=== PATIENT | male | born 1940 | race Caucasian/White ===

== ENCOUNTER 2018-05-13 20:28 | Inpatient (IN) | payer MEDICARE, OTHER ==
[~2018-05-13] VITALS: Ht 177.8 cm; Wt 80.6 kg
[2018-05-13] MEDS ORDERED: MULTCAP PO (20:42)
[2018-05-13] MEDS ORDERED: ASPI-222 PO (20:42)
[2018-05-13] MEDS ORDERED: TUMS500C PO (20:42)
[2018-05-13 21:35] LABS: HEMATOCRIT 45.1 % (42.0-52.0); HEMOGLOBIN 14.4 g/dl (13.5-17.5); MEAN CORPUSCULAR HEMOGLOBIN 26.8 pg (27.0-33.0); MEAN CORPUSCULAR HGB CONC 31.9 g/dl (32.0-36.5); MEAN CORPUSCULAR VOLUME 83.8 fl (80.0-96.0); PLATELET COUNT, AUTOMATED 317 10^3/uL (150-450); RED BLOOD COUNT 5.38 10^6/uL (4.30-6.10)
[2018-05-13 21:38] LABS: WHITE BLOOD COUNT 24.5 10^3/uL (4.0-10.0)
[2018-05-13 21:52] LABS: ATYPICAL LYMPH 1 % (0-5); LYMPHOCYTES 57 % (16-52); MONOCYTES 4 % (0-8); NEUTROPHILS 38 % (35-75); PLATELET ESTIMATE NORMAL (NORMAL)
[2018-05-13 21:55] LABS: SMUDGE CELLS 1+
[2018-05-13 22:03] LABS: ALBUMIN 3.3 GM/DL (3.2-5.2); BILIRUBIN,DIRECT 0.3 MG/DL (0.0-0.2); BILIRUBIN,TOTAL 0.9 MG/DL (0.2-1.0); CALCIUM LEVEL 9.5 MG/DL (8.8-10.2); CREATININE FOR GFR 2.03 MG/DL (0.70-1.30); MB/CK RELATIVE INDEX 4.31 (< OR =4); POTASSIUM SERUM 5.6 MEQ/L (3.5-5.1); THYROID STIMULATING HORMONE 4.97 uIU/ML (0.358-3.740); THYROXINE (T4) 11.1 UG/DL (4.5-12.0); TOTAL PROTEIN 7.2 GM/DL (6.4-8.2); TROPONIN I 0.27 NG/ML (< 0.10)
--- NOTE | 2018-05-14 00:22 | REPVR ---
EXAM: CT Chest Without Contrast EXAM DATE/TIME: 05/13/2018 10:54 PM CLINICAL HISTORY: 77 years old, male; Signs and symptoms; Shortness of breath TECHNIQUE: Axial computed tomography images of the chest without intravenous contrast. All CT scans at this facility use at least one of these dose optimization techniques: automated exposure control; mA and/or kV adjustment per patient size (includes targeted exams where dose is matched to clinical indication); or iterative reconstruction. Coronal and sagittal reformatted images were created and reviewed. MIP reconstructed images were created and reviewed. COMPARISON: CR PORTABLE CHEST X-RAY 05/13/2018 9:11 PM FINDINGS: Lungs: Abnormal bronchocentric perihilar groundglass opacities noted bilaterally. There are fibrotic changes noted in the right middle lobe and the lingula. There is diffuse bronchial wall thickening. Paraseptal type emphysema at the right lung apex. Scattered centrilobular nodules noted in the right middle lobe. Pleural space: There are moderate sized bilateral pleural effusions. Heart: Normal. No cardiomegaly. No pericardial effusion. Mediastinum: There is a small sliding hiatal hernia. Aorta: Normal. No aortic aneurysm. Lymph nodes: Unremarkable. No enlarged lymph nodes. Bones/joints: Diffuse idiopathic skeletal hyperostosis in the dorsal spine. Mild biconcave deformity of T11 and T12. Soft tissues: Unremarkable. Kidneys and ureters: There are 2 exophytic low density lesion arising from the midportion the left kidney measuring 1.0 and 1.9 cm respectively in maximum diameter. There is a 1.8 cm low-density lesion in the midportion of the right kidney. IMPRESSION: 1. Bilateral bronchocentric perihilar groundglass pneumonitis. Differential diagnostic considerations include infectious pneumonia, pulmonary hemorrhage, acute interstitial pneumonia, hypersensitivity pneumonitis, noncardiogenic pulmonary edema among others 2. Moderate-sized bilateral pleural effusions. 3. Small sliding hilum hernia. 4. Bilateral low-density renal lesions not characterized fully on this noncontrast examination. Electronically signed by: Linda Bartlett On 05/14/2018 00:22:12 AM
[2018-05-14 00:33] LABS: HEMOGLOBIN A1c 13.3 %
[2018-05-14] MEDS ORDERED: HumaLOG INSULIN (NovoLOG) PER UNIT SC ONE ×2 (01:00→07:30)
[2018-05-14] MEDS ORDERED: FUROSEMIDE 40 MG/4 ML VIAL (J1940) IV ONE (01:00)
[2018-05-14] MEDS ORDERED: OCEA0.654 (01:19)
[2018-05-14] MEDS ORDERED: SUDA30TA8 PO (01:19)
[2018-05-14] MEDS ORDERED: VISI0.054 OU (01:19)
[2018-05-14] MEDS ORDERED: [UNRECOGNIZED DRUG - CODE] PO (01:19)
[2018-05-14] MEDS ORDERED: ASPI-222 PO (01:19)
[2018-05-14] MEDS ORDERED: TUMS750C5 PO (01:19)
[2018-05-14 01:29] LABS: MB/CK RELATIVE INDEX 5.32 (< OR =4)
[2018-05-14] MEDS ORDERED: SODIUM CHLORIDE NASAL 0.65% SPRAY BTL (OCEAN) PRN (01:45)
[2018-05-14] MEDS ORDERED: TETRAHYDROZOLINE OPHTH 0.05% 15 ML BTL OU PRN (01:45)
[2018-05-14] MEDS ORDERED: GLUCOSE 4 GM CHEW TABLET PO PRN (02:00)
[2018-05-14] MEDS ORDERED: DEXTROSE 50% 50 ML SYRINGE IV PRN (02:00)
[2018-05-14] MEDS ORDERED: GLUCAGON FOR INJ 1 MG VIAL (J1610) SC PRN (02:00)
--- NOTE | 2018-05-14 03:04 | HPEPDOC ---
[facility] Medical History & Physical Date of Admission May 14, 2018 Other Provider Dictating/admitting Celsa Rae M.D. Attending Physician: CODI MURPHY DO History and Physical CHIEF COMPLAINT: Progressive shortness of breath x couple of weeks HISTORY OF PRESENT ILLNESS: Patient is 77-year-old man. He has no known medical history. Comes in complaining of progressive shortness of breath on exertion for the past couple of weeks. He has noticed extreme dyspnea, with short walks. Currently, he is unable to take 5 steps without being severely short of breath. Patient had been lost to follow-up for the past 20 years. No PCP on account of health insurance issues. He did report that a couple weeks ago, he had an episode of upper respiratory tract infection, but after recovering from the URTI, then he noticed the shortness of breath, which has since not improved, but further worsened. Currently denies any fever, no chills. No dizziness, no nausea no vomiting. Occasional coughing, shortness of breath on exertion but no chest pain, no palpitations. He hasn't noticed any changes to his urinary or bowel habits. He has noted however very mild ankle swelling but no lower extremity pains. He was evaluated in the emergency room with chest x-ray and CT scan consistent with pulmonary edema, labs show elevated troponin 0.2. EKG with LBBB. Serum glucose 600, A1c anticipated. Serum creatinine 2.03. Patient was offered transfer to another hospital for further cardiac intervention if needed, but he declined. Dr. Boston was contacted and he will see patient as consult in the morning. Hospitalist was called for further evaluation and to admit patient. PAST MEDICAL HISTORY: None PAST SURGICAL HISTORY: Tonsillectomy as a child SOCIAL HISTORY: Lives with his . Denies any smoking. Occasional alcohol use. Denies any illicit drug use. FAMILY HISTORY: Father: from complications of heart disease at age 71 ALLERGIES: Please see below. REVIEW OF SYSTEMS: No new information, with 12 point review of system other than that described in the body of HPI HOME MEDICATIONS: Please see below. PHYSICAL EXAMINATION: VITAL SIGNS: Temperature 98.3, pulse 122, respiratory rate 18, blood pressure 102/65, pulse oximetry 95% on room air. GENERAL APPEARANCE: Elderly man, lying calmly in bed, ill looking not in any apparent distress. He is not pale, anicteric and afebrile HEENT: Atraumatic. Neck: Supple. LUNGS: Basal crepitations bilaterally. CARDIOVASCULAR: tachypneic, S1 and 2 heard, no murmurs, rubs or gallops. ABDOMEN: Obese, soft, not tender, not distended. Bowel sounds normoactive. MUSCULOSKELETAL: Apparently within normal limits. EXTREMITIES: mild ankle edema, 2+ bilateral pedal pulses noted. NEUROLOGICAL: Awake, alert, oriented 3. PSYCHIATRIC: Normal affect LABORATORY DATA: See below. IMAGING: Chest x-ray: Encephalization of vessels likely consistent with pulmonary edema. CT chest: 1. Bilateral bronchocentric perihilar groundglass pneumonitis. Differential diagnostic considerations include infectious pneumonia, pulmonary hemorrhage, acute interstitial pneumonia, hypersensitivity pneumonitis, noncardiogenic pulmonary edema among others 2. Moderate-sized bilateral pleural effusions. 3. Small sliding hilum hernia. 4. Bilateral low-density renal lesions not characterized fully on this noncontrast examination. MICROBIOLOGY: Please see below. ASSESSMENT: 77-year-old man with no known medical history lost to follow-up for over 20 years. Comes in with progressively worsening shortness of breath on exertion after recovering from upper respiratory infection. Patient looks ill on exam, but not in any apparent painful distress. Auscultation reveals bibasal crepitations. Labs with elevated troponin 0.2, creatinine 2.03, serum glucose 600, anticipating hemoglobin A1c results. EKG with LBBB. Patient refusing any intervention and refusing transfer to other centers for further cardiac care. We will treat medically as indicated. DIAGNOSES: 1. New onset CHF 2. New onset diabetes. 3. Rule out ACS. 4. CKD 5. Pneumonia . PLAN: 1. I will admit patient to the PCU under care of Dr. Murphy 2. New onset CHF Cardiologic consult placed. Echocardiogram at this time, I will consider starting patient low-dose beta reynaldo. Keeping in view beta blockers may worsen dyspnea but respiratory rate on exam is 18 low-dose beta reynaldo is indicated in this case due to tachycardia. Follow result of echocardiogram tomorrow and as indicated, start patient on CHIKIS inhibitor. Will continue furosemide 40 mg BID, day team please reevaluate patient's volume status and change dose as indicated. follow daily BMP. 3. Rule out ACS. I will touch base with pharmacy and figure out which anticoagulation will be better for this patient while cycling 1 more cardiac enzyme. Second troponin, elevated from 0.2-1. Next Troponin will be at 6 AM, patient will be seen by Dr. Boston the morning. Patient has refused being transferred to order centers for further cardiac care/intervention if needed and opted for medical management. I will give Lovenox 80 mg every 24 hours renally dose. 4. CKD likely from poorly monitored/treated. Diabetes. This might be from diabetic nephropathy. I will ask renal to see patient in the morning. Please follow renal US as suspicious findings noted on CT. 5. Pneumonia. Patient will get ceftriaxone and his azithromycin. Please follow blood culture. Follow temperature trends CBC/peripheral smear in the morning. 6. New onset diabetes. ADA diet and insulin sliding scale. 7. DVT prophylaxis. Anticoagulation. 8. GI prophylaxis. Pantoprazole. 9. Further management will be per patient's clinical course. Vital Signs Vital Signs Date Time Temp Pulse Resp B/P (MAP) Pulse Ox O2 Delivery O2 Flow Rate FiO2 05/13/18 20:59 122 18 102/65 (77) 95 Room Air 05/13/18 20:30 98.3 Laboratory Data Labs 24H Laboratory Tests 2 05/13/18 21:13: Estimated Mean Plasma Glucose 335H, Hemoglobin A1c 13.3 05/13/18 21:14: White Blood Count 24.5H, Red Blood Count 5.38, Hemoglobin 14.4, Hematocrit 45.1, Mean Corpuscular Volume 83.8, Mean Corpuscular Hemoglobin 26.8L, Mean Corpuscular Hemoglobin Concent 31.9L, Red Cell Distribution Width 14.3, Platelet Count 317, Lymphocytes # (Auto) , Nucleated Red Blood Cells % (auto) 0.0, Neutrophils 38, Lymphocytes (Manual) 57H, Monocytes (Manual) 4, Atypical Lymphocytes 1, Smudge Cells 1+, Platelet Estimate NORMAL, Anion Gap 14, Glomerular Filtration Rate 34.0L, Calcium Level 9.5, Aspartate Amino Transf (AST/SGOT) 10, Alanine Aminotransferase (ALT/SGPT) 15, Alkaline Phosphatase 104, Total Bilirubin 0.9, Direct Bilirubin 0.3H, Total Creatine Kinase 58, Creatine Kinase MB 2.0, Creatine Kinase MB Relative Index 4.31H, Troponin I 0.27H, JH-Pzb-L-Type Natriuretic Peptide 70637Z, Total Protein 7.2, Albumin 3.3, Albumin/Globulin Ratio 0.85L, Thyroid Stimulating Hormone (TSH) 4.970H, Thyroxine (T4) 11.1 05/14/18 00:55: Total Creatine Kinase 62, Creatine Kinase MB 3.0, Creatine Kinase MB Relative Index 5.32H, Troponin I 1.00#H CBC/BMP Laboratory Tests 05/13/18 21:14 Red Blood Count 5.38, Mean Corpuscular Volume 83.8, Mean Corpuscular Hemoglobin 26.8 L, Mean Corpuscular Hemoglobin Concent 31.9 L, Red Cell Distribution Width 14.3, Lymphocytes # (Auto) Home Medications Scheduled Aspirin (Aspirin) 325 Mg Tab, 325 MG PO DAILY Calcium Carbonate (Tums E-X 750) 750 Mg Chw, 750 MG PO BID Scheduled PRN (Theraflu Expressmax 12.5-5-325 mg/15Ml) 1 Liq Liq, 1 LIQ PO Q4H PRN for FLU SYMPTOMS Pseudoephedrine Hcl (Sudafed Congestion) 30 Mg Tab, 30 MG PO Q4H PRN for CONGESTION Sodium Chloride (Keller Nasal [place]) 0.65 % Spr, 2 SPRAY NA QID PRN for NASAL CONGESTION EACH NOSTRIL Tetrahydrozoline Hcl (Visine) 0.05 % Cony, 1 DROP OU QID PRN for REDNESS/IRRITATION Allergies Coded Allergies: [place] (Verified Allergy, Unknown, 05/13/18) CELSA RAE MD May 14, 2018 03:04
[2018-05-14 03:08] VITALS: BP 100/57
[2018-05-14] MEDS: LEVEMIR (INSULIN DETEMIR) 1 UNITS/0.01ML SC SCH ×2 (03:29→21:33)
[2018-05-14] MEDS: ONDANSETRON 4MG/2ML VIAL (J2405) IV PRN (03:53)
[2018-05-14] MEDS ORDERED: AZITHROMYCIN INJ 500 MG, VIAL MATE ADAPTER 1 EACH in D5W 250 ML IV ONE (04:00)
[2018-05-14 05:57] LABS: HEMATOCRIT 43.4 % (42.0-52.0); HEMOGLOBIN 13.8 g/dl (13.5-17.5); MEAN CORPUSCULAR HEMOGLOBIN 26.7 pg (27.0-33.0); MEAN CORPUSCULAR HGB CONC 31.8 g/dl (32.0-36.5); MEAN CORPUSCULAR VOLUME 83.9 fl (80.0-96.0); PLATELET COUNT, AUTOMATED 302 10^3/uL (150-450); RED BLOOD COUNT 5.17 10^6/uL (4.30-6.10)
[2018-05-14 06:02] LABS: WHITE BLOOD COUNT 23.3 10^3/uL (4.0-10.0)
[2018-05-14] MEDS: ENOXAPARIN 80 MG/0.8 ML SYRINGE (J1650) SC SCH (06:02)
[2018-05-14] MEDS: cefTRIAXone SOD 1 GM in D5W MINI-BAG PLUS 50 ML IV SCH (06:02)
[2018-05-14 06:18] LABS: HEMOGLOBIN A1c 13.4 %
[2018-05-14 06:21] LABS: CALCIUM LEVEL 10.3 MG/DL (8.8-10.2); CHOLESTEROL RISK RATIO 3.5 (<5); CREATININE FOR GFR 1.98 MG/DL (0.70-1.30); POTASSIUM SERUM 4.6 MEQ/L (3.5-5.1); TROPONIN I 3.99 NG/ML (< 0.10)
[2018-05-14 06:26] LABS: MAGNESIUM LEVEL 2.1 MG/DL (1.8-2.4); MB/CK RELATIVE INDEX 5.98 (< OR =4); TROPONIN I 4.44 NG/ML (< 0.10)
[2018-05-14 06:50] LABS: ATYPICAL LYMPH 10 % (0-5); LYMPHOCYTES 31 % (16-52); MONOCYTES 4 % (0-8); NEUTROPHILS 53 % (35-75)
[2018-05-14 06:51] LABS: PLATELET ESTIMATE NORMAL (NORMAL)
[2018-05-14 06:52] LABS: ANISOCYTOSIS 1+; SMUDGE CELLS 1+
[2018-05-14] MEDS: HumaLOG INSULIN (NovoLOG) PER UNIT SC SCH ×4 (07:30→21:33)
[2018-05-14 08:00] VITALS: BP 106/60
[2018-05-14] MEDS: HEPARIN SOD (PORCINE) 5000 UNITS/ML VIAL SC SCH ×2 (08:20→21:00)
[2018-05-14] MEDS: CARVedilol 3.125 MG TAB PO SCH ×2 (08:21→21:32)
[2018-05-14] MEDS ORDERED: SLF 3 ML SYR IV PRN (08:45)
--- NOTE | 2018-05-14 08:47 | REP ---
Chest one-view HISTORY: Cough Comparison: None Parenchymal densities are present in the lungs consistent with bilateral infiltrates or edema. Small bilateral pleural effusions are present. The heart is normal in size. The pulmonary vasculature is a prominent. Impression: 1. Bilateral infiltrates or edema. 2. Small bilateral pleural effusions. Electronically Signed by Cristian Huggins MD 05/14/2018 08:38 A
[2018-05-14] MEDS ORDERED: ASPIRIN ENTERIC 325 MG TAB PO SCH (09:00)
[2018-05-14] MEDS ORDERED: PANTOPRAZOLE 40MG TAB (PROTONIX) PO SCH (09:00)
[2018-05-14] MEDS ORDERED: FUROSEMIDE 40 MG/4 ML VIAL (J1940) IV SCH (09:00)
--- NOTE | 2018-05-14 09:37 | CR ---
DATE OF CONSULTATION: 05/14/2018 I was asked by Dr. Davila to see Mr. Giang for elevated troponin and congestive heart failure. HISTORY OF PRESENT ILLNESS: Mr. Giang is a 77-year-old man, who has not had any medical care for over 20 years. He tells me that the back then he was seen regularly because [place] and to the best of his recollection he was found to be completely healthy. He was in his usual state of health until approximately 2 weeks ago when he developed cough and a sensation of pressure on his chest. It was constant, present for several days. Eventually his brought him some cough medicine that he started taking; after 2 or 3 days the cough has subsided and the discomfort in his chest resolved as well, but shortly thereafter, he started experiencing dyspnea that gradually progressed to the point of orthopnea and eventually he was not able to tolerate even minimal ambulation and came to hospital for further management. There was also paroxysmal nocturnal dyspnea (PND), but at no point, since the initial chest pressure about 2 weeks ago he had additional chest discomfort. He also did not notice any palpitations and he did not have any peripheral edema. On presentation to the emergency room (ER), he had a chest x-ray that was consistent with congestive heart failure. It revealed cardiomegaly, bilateral pleural effusions and vascular distribution. His white count was quite elevated and ECG revealed sinus rhythm with low voltage in extremity leads but not in precordial leads, and there was poor R-wave progression and nonspecific IVCD and ST-segment depressions in leads V4 and V5. His troponin on presentation is borderline elevated. He was offered to be transferred to [place] but he refused. He stayed overnight and his troponin climbed and this morning is at 4.4. Surprisingly, his CK-MB though remains only minimally elevated at 6.0. At bedside, he tells me that he is comfortable. He feels a lot better than he did yesterday even though he still feels short of breath. He denies any chest discomfort. He did put out approximately a liter of urine since presentation to the hospital even though it has been poorly documented. PAST MEDICAL HISTORY: Negative. He has not seen a physician though over 20 years at the minimum. SURGICAL HISTORY: He had tonsillectomy, otherwise negative. No medications. NO ALLERGIES. 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 Does not smoke. Minimal alcohol use. FAMILY HISTORY: His father suddenly in his 70s, most likely of myocardial infarction ([place]). At the review of systems, he denies any recent fever other than possibly 2 weeks ago when his symptoms started. He denies any chills. He denies syncope and near-syncope. Denies chest pain. He denies any productive cough. He denies abdominal pain, nausea, vomiting, diarrhea. No peripheral edema of significance. He did lose approximately 30 pounds of weight since last December. He recalls that then he had a similar presentation but it gradually improved on its own. PHYSICAL EXAMINATION: Mr. Giang is a 77-year-old man, who is sitting in progressive care unit (PCU) bed. Surprisingly, he looks completely comfortable and is in no distress. He is alert and oriented and appropriate. Lungs reveal fine end inspiratory crackles over lower, maybe on-third or quarter of his lung field. At the true bases though, the lung sounds are completely diminished and there is dullness to percussion indicative of effusions. In the upper two-thirds of the lungs sound clear. Heart exam reveals somewhat muffled heart sound. I do not appreciate a murmur or gallop, but the I had a really hard time auscultating the sounds at all. Abdomen is soft. No hepatosplenomegaly. There is no tenderness. Bowel sounds are present. Extremities are free of edema. Peripheral pulses are easily palpable on both lower extremities. He has stasis dermatitis subtle changes over the lower third of left sr. Neurologically, he is alert and oriented and appropriate. I do not appreciate any focal deficit. His thought process is completely intact. LABORATORY: As of this morning, sodium 129, potassium 4.6, BUN 36, creatinine 2.0 for GFR 35 and glucose 550. Hemoglobin A1c was 13.4. Calcium 10.3. Troponin is climbing and is 4.4 this morning. On admission, it was 0.27 yesterday evening. His liver function tests are essentially normal. Cholesterol 175, LDL 99, triglycerides 130, TSH was 4.9. CBC: WBC count 23,000, hemoglobin 13, hematocrit 43, platelet count 302,000. His peripheral smear had atypical lymphocyte in them. In differential, there was 30 neutrophils and 57% lymphocytes. ECG as per history of present illness. Chest x-ray as per history of present illness. CT scan also consistent with a finding on the chest x-ray with bilateral pleural effusions and probably changes related to pulmonary edema. Borderline cardiomegaly. No pericardial effusion. ASSESSMENT AND PLAN: Mr. Giang is a 77-year-old man, who comes to hospital with florid congestive heart failure that is principally left-sided. He also is ruling in for myocardial infarction even though he never had any chest discomfort per se. I have to say that the whole presentation is not completely typical. I do assume that he most likely has underlying cardiomyopathy that was recently aggravated by probably viral illness and threw him into congestive heart failure that is florid. The elevation of the troponin possibly could be ischemic but it also could be a sign of myocarditis. I agree with management so far. He received aspirin and he received Lovenox considering renal dysfunction the dose is essentially therapeutic. He also received minimal dose of beta-reynaldo and I would not give him higher dose due to his heart failure and unknown ejection fraction (EF) at this point. I will increase the dose of diuretics some more and will obtain an echocardiogram and renal ultrasound. Further management will depend on findings. I had a discussion with the patient about his wishes. He is firm in his decision to be DO NOT INTUBATE, DO NOT RESUSCITATE, and he also is firm with his decision not to consider transfer potential coronary intervention, but he left the door open that depending on evolving of his situation he may agree to intervention if felt highly beneficial, but at this point he does not consider that consistent with his wishes. SHRUTHI
[2018-05-14 09:43] LABS: C REACTIVE PROTEIN QUANTITATIV 14.1 MG/DL (0.00-0.30)
[2018-05-14 12:00] VITALS: BP 108/60
[2018-05-14 13:24] LABS: INR 1.12; PROTHROMBIN TIME 14.5 SECONDS (12.1-14.4)
[2018-05-14] MEDS: SLF 3 ML SYR IV SCH ×2 (13:54→21:34)
[2018-05-14] MEDS: FUROSEMIDE 100 MG/10 ML VIAL (J1940) IV SCH (13:54)
[2018-05-14 13:59] LABS: MB/CK RELATIVE INDEX 5.22 (< OR =4); TROPONIN I 4.78 NG/ML (< 0.10)
[2018-05-14 16:00] VITALS: BP 110/58
--- NOTE | 2018-05-14 18:01 | REP ---
Urinary tract sonography: History: Suspicious renal lesion on CT abdomen. Comparison is made with images from CT study of the chest May 13, 2018. Sonographic findings: Filled views of the bladder demonstrate a trabecular bladder bonilla and somewhat thickened bladder bonilla. The bladder is incompletely filled. No bladder mass lesion is seen. Renal cortical echogenicity pattern is increased bilaterally consistent with chronic medical renal disease. There is no evidence of hydronephrosis. No renal mass is seen on either side. The left kidney measures 10.0 x 4.5 x 4.8 cm. Right renal dimensions are 9.9 x 5.8 x 4.7 cm. The right kidney demonstrates a 2.2 x 2.0 x 1.4 cm cyst at the lower pole. There are two cysts visible laterally at mid pole on the left measuring 2.2 x 2.2 x 1.0 and 1.1 x 2.0 x 1.2 cm respectively. Impression: Bilateral renal cysts. No hydronephrosis. Increased renal cortical echogenicity consistent with chronic medical renal disease. Trabeculated bladder bonilla. Electronically Signed by Tad Naylor MD 05/14/2018 06:19 P
--- NOTE | 2018-05-14 19:51 | ECGEPIP ---
Stationary ECG Study 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
[2018-05-14 21:08] VITALS: BP 113/69
[2018-05-14] MEDS: ATORVASTATIN 20 MG TAB PO SCH (21:31)
[2018-05-14 21:39] LABS: MB/CK RELATIVE INDEX 4.46 (< OR =4); TROPONIN I 2.8 NG/ML (< 0.10)
[2018-05-14 23:47] VITALS: BP 100/64
[2018-05-15] VITALS (11 sets, daily range): BP systolic 91–113; BP diastolic 59–70
[2018-05-15 00:04] LABS: APPEARANCE, URINE CLEAR (CLEAR); BACTERIA, URINE AUTO NEGATIVE (NEGATIVE); BILIRUBIN, URINE AUTO NEGATIVE (NEGATIVE); BLOOD, URINE BLOOD NEGATIVE (NEGATIVE); COLOR, URINE YELLOW (YELLOW); GLUCOSE, URINE (UA) AUTO 1+ mg/dL (NEGATIVE); KETONE, URINE AUTO NEGATIVE (NEGATIVE); LEUKOCYTE ESTERASE, URINE AUTO NEGATIVE (NEGATIVE); MUCUS, URINE SMALL (NEGATIVE); NITRITE, URINE AUTO NEGATIVE (NEGATIVE); PROTEIN, URINE AUTO NEGATIVE (NEGATIVE); RBC, URINE AUTO 2 /HPF (0-3); SPECIFIC GRAVITY URINE AUTO 1.011 (1.002-1.035); SQUAMOUS EPITHELIAL CELL UR AU 0 /HPF (0-6); UROBILINOGEN, URINE AUTO 0.2 mg/dL (0.0-2.0); WBC, URINE AUTO 1 /HPF (0-3)
[2018-05-15 00:26] LABS: CREATININE,RANDOM URINE 73.3 MG/DL
[2018-05-15] MEDS: ENOXAPARIN 80 MG/0.8 ML SYRINGE (J1650) SC SCH ×2 (01:30→06:07)
[2018-05-15] MEDS: **hydrALAZINE** 10 MG TAB PO SCH ×3 (06:00→22:00)
[2018-05-15] MEDS: cefTRIAXone SOD 1 GM in D5W MINI-BAG PLUS 50 ML IV SCH (06:07)
[2018-05-15] MEDS: SLF 3 ML SYR IV SCH ×3 (06:07→21:14)
[2018-05-15 06:22] LABS: HEMATOCRIT 42.6 % (42.0-52.0); HEMOGLOBIN 13.6 g/dl (13.5-17.5); MEAN CORPUSCULAR HEMOGLOBIN 26.7 pg (27.0-33.0); MEAN CORPUSCULAR HGB CONC 31.9 g/dl (32.0-36.5); MEAN CORPUSCULAR VOLUME 83.7 fl (80.0-96.0); PLATELET COUNT, AUTOMATED 256 10^3/uL (150-450); RED BLOOD COUNT 5.09 10^6/uL (4.30-6.10); WHITE BLOOD COUNT 23.4 10^3/uL (4.0-10.0)
--- NOTE | 2018-05-15 06:32 | ECHO ---
DATE OF PROCEDURE: 05/14/2018 REFERRING PHYSICIAN: Dr. Davila. INDICATION: Congestive heart failure. Height: 178 cm Weight: 81 kg DIMENSIONS: IVS: 1.0 LV: 5.3 LVPW: 0.9 LA: 3.9 Aorta: 3.2 IVC: 1.9 Mitral E wave velocity: 43 E prime septal: 3.3 E prime lateral: 8.9 Left atrial volume index: 9 mL/m2 FINDINGS: The study is of good technical quality. The patient is in sinus tachycardia with ventricular rate approximately 120-125 bpm. Left ventricle is normal size. There is severe global hypokinesis. I estimate overall ejection fraction approximately 10%. Right ventricle does not appear grossly dilated but is also hypokinetic. Left atrium is mildly enlarged. Right atrium was poorly seen but grossly appears normal. Aortic, mitral, tricuspid and pulmonic valves all appear normal for patient's age. There are minimal sclerotic abnormalities of aortic and mitral valves but mobility of leaflets is preserved. No pericardial effusion is noted. Inferior vena cava is in upper limits of normal values but does not collapse with respiration indicative of high central venous pressure. Aortic root is normal. Aortic arch and abdominal aorta were not seen. Left pleural effusion was seen. Doppler interrogation reveals no aortic stenosis or insufficiency. There is mild mitral and mild tricuspid insufficiency. Calculated pulmonary artery pressure is in 40s corresponding to moderate pulmonary hypertension. Mild pulmonic insufficiency seen. Evaluation of diastolic function is inconclusive due to fusion of mitral E and A-waves but considering very low tissue Doppler velocities of mitral annulus, it is likely that the patient has advanced diastolic dysfunction. CONCLUSION: 1. Study is of good technical quality. 2. Normal LV size but severe global hypokinesis with estimated LVEF approximately 10%, at least grade 2 diastolic dysfunction. 3. No hemodynamically significant valvular disease. 4. Elevated central venous pressure and likely moderate pulmonary hypertension. COMMENT: SBE prophylaxis is not recommended. The study favors nonischemic cardiomyopathy, but ischemic etiology is certainly possible. MTDD
[2018-05-15 06:58] LABS: CREATININE FOR GFR 1.89 MG/DL (0.70-1.30); GLOMERULAR FILTRATION RATE 36.9 (>42); MB/CK RELATIVE INDEX 4.47 (< OR =4); POTASSIUM SERUM 3.4 MEQ/L (3.5-5.1); TROPONIN I 1.75 NG/ML (< 0.10)
[2018-05-15] MEDS: HumaLOG INSULIN (NovoLOG) PER UNIT SC SCH ×4 (07:30→21:14)
--- NOTE | 2018-05-15 08:04 | CR ---
DATE OF CONSULTATION: 05/14/2018 REQUESTING PHYSICIAN: Dr. Becca Stewart. REASON FOR CONSULTATION: Management of acute renal failure. CHIEF COMPLAINT: Patient presented to the hospital for progressive shortness of breath a few weeks. HISTORY OF PRESENT ILLNESS: Sandor Giang is a 77-year-old male who apparently has not seen a physician in the last 20 years. He denies any past medical history. He presented to the hospital yesterday with progressive shortness of breath for a couple of weeks. Further evaluation including labs and images done in the emergency room showed that patient had diabetes mellitus. His blood sugars were more than 600. Chest x-ray showed evidence of pulmonary edema. He was tachycardic. He was found to be in congestive heart failure. EKG showed a left bundle branch block. He also had mild elevation of troponins. He was admitted under the hospitalist service for new onset diabetes, decompensated congestive heart failure, rule out acute coronary syndrome. He was also found to have a creatinine of 2.03 on admission. Potassium of 5.6 and sodium of 128. Crisis Therapist service was called for further help in the management of this patient with acute renal failure. Decompensated congestive heart failure, diabetes mellitus and multiple electrolyte abnormalities. I saw and evaluated the patient this morning at the bedside. Patient reported that he was feeling better today as compared with yesterday. He has been diuresed since last night. He has been started on insulin. His blood sugars are also improving. There is slight improvement in his creatinine today as compared with yesterday. PAST MEDICAL HISTORY: Patient has not see a physician in 20 years. PAST SURGICAL HISTORY: He reports history of tonsillectomy in his childhood. ALLERGIES: No known drug allergies. He is allergic to strawberries. FAMILY HISTORY: No significant family history of end-stage renal disease requiring hemodialysis. SOCIAL HISTORY: Patient lives at home with his . He denies any elicit drug abuse, alcohol abuse, or smoking. REVIEW OF SYSTEMS: CONSTITUTIONAL: Patient denies any fevers or chills. EYES: He denies any blurry vision, double vision. ENT: He denies any dysphagia. CARDIOVASCULAR: He reports palpitations and chest pressure. RESPIRATORY: He reports shortness of breath. GI: He denies any nausea or vomiting. : He denies any dysuria, hematuria. MUSCULOSKELETAL: He denies any muscle aches and pains. SKIN: He denies any rashes or ulcers. ENDOCRINE: He reports a newly diagnosed diabetes. HEMATOLOGICAL/ONCOLOGICAL: He denies any easy bleeding or bruising. PSYCH: He denies any depression or anxiety. All other review of systems is negative. PHYSICAL EXAMINATION: VITAL SIGNS: Temperature 98 degrees Fahrenheit, blood pressure 108/60, pulse 120, respiratory rate 18, saturating 98% in room air. Intake and output: Urine output recorded so far as 2.1 liters. GENERAL: Patient is awake, alert, oriented times three sitting up in the bed. HEAD/NECK: Extraocular muscles intact. Pupils equally round and reactive to light. Mucous membranes are moist. NECK: Supple. There is on mildly elevated jugular venous distention (JVD). CARDIOVASCULAR: S1, S2, tachycardia. 1+ edema of the bilateral lower extremities. RESPIRATORY: Chest bilaterally had mild crepitations with deep inspiration. Mildly decreased focal resonance bilaterally at the bases. ABDOMEN: Soft, positive bowel sounds. Nontender. No organomegaly. : Bladder is not palpable. MUSCULOSKELETAL: No clubbing or cyanosis. 1+ edema of the bilateral lower extremities. LOOSE HAND PACKER: No focal deficit. Power is 5/5 in all extremities. SKIN: No rashes or ulcers. LAB REVIEW: CBC showed a WBC 23.3, hemoglobin 13.8, platelets 302. INR 1.12. BMP on arrival showed sodium 128, potassium 5.6, chloride 94. Bicarbonate 20, BUN 34, creatinine 2, glucose 640, A1c 13.3, bilirubin 0.3, troponin was 0.27, proBNP 10,635. TSH 4.97. Microbiology: Blood cultures are pending. IMAGING: A renal ultrasound showed bilateral renal cysts. Increased renal cortical echogenicity consistent with medical renal disease. Trabeculated bladder wall. A CT chest was done which showed bilateral bronchocentric perihilar ground-glass pneumonitis, which had a broad differential diagnosis including pulmonary edema versus pneumonitis. Moderate-sized bilateral pleural effusions. CURRENT INPATIENT MEDICATIONS: Patients inpatient medications are all reviewed by me. He is on: - azithromycin 500 mg IV once - Rocephin 1 gram IV every 24 hours - aspirin 325 mg daily - Lipitor 20 mg nightly - Coreg 3.125 mg by mouth twice a day - Lasix 30 mg IV every 12 hours - Insulin Levemir 10 units subcutaneous nightly and insulin sliding scale. - Zofran as needed ASSESSMENT: 77-year-old male with new onset diabetes mellitus type 2, acute decompensated congestive heart failure, acute renal failure, pneumonia, hyponatremia, hypokalemia and metabolic acidosis. PLAN: 1. Acute renal failure: This is most likely secondary to a combination of diabetes mellitus type 2 and decompensated congestive heart failure. Baseline renal function is not known. Patient has not seen a physician for more than 20 years. I see that since last night with diuresis there is a slight improvement in his creatinine from 2.0 to 1.9. Okay to continue the current diuresis at this point. There is no urinalysis available. I have ordered the urinalysis and urine protein/creatinine ratio. Renal ultrasound showed increased renal echogenicity most likely secondary to diabetic nephropathy. 2. Hyponatremia: Patient has hypervolemic hyponatremia. Sodium level is improving with diuresis. 3. Hyperkalemia: This is secondary to renal failure and metabolic acidosis. Potassium level is improving with diuresis. 4. Metabolic acidosis: This is secondary to renal failure. No need or oral bicarbonate administration. Bicarbonate level is expected to improve with further improvement in the renal function. 5. New onset diabetes mellitus type 2: Patient has been started on insulins sliding scale and insulin Levemir. Glucose levels are improving. Most likely patient has un-diagnosed diabetes for may years and he might already have developed diabetic nephropathy as well. 6. Decompensated congestive heart failure: Patient does not have an echocardiograms available. Looking at patient's tachycardia and decompensated congestive heart failure, most likely looks like he has a systolic congestive heart failure. Okay to continue diuretics. He has already been started on Coreg 3.125 mg by mouth twice a day and I agree with that. 7. Community acquired pneumonia: Patient came in with leukocytosis and infiltrates on the CT scan. I agree with giving him ceftriaxone and azithromycin. Blood cultures are pending at this point. 8. Acute coronary syndrome: Patient has elevated troponin levels. He is already on aspirin, Plavix and Lovenox. He has been started on a statin. He has been started on low dose beta reynaldo. Patient was seeing cardiology. He refused any intervention or transfer to a higher level of care in [place]. Continue current medical management at this point. The rest of the management is as per cardiology recommendations. His EKG showed left bundle branch block. Thank you for involving me in the care of this patient. I shall be happy to follow the patient along with you tomorrow morning.
--- NOTE | 2018-05-15 08:39 | ECGEPIP ---
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
--- NOTE | 2018-05-15 08:52 | IPN ---
DATE: 05/15/2018 Mr. Giang tells me that he is feeling about 50% better today. He was able to walk to the bathroom and have his morning toilet without getting overly short of breath. He did not have paroxysmal nocturnal dyspnea (PND). Unfortunately, he did not sleep well. He said he was very restless, but overall there was definite improvement. He denies any chest pain. Vital Signs: This morning, blood pressure 113/65. Heart rate 104. He is afebrile. Saturation 93% on room air. Fluid balance yesterday was documented about negative 1600. He is alert, oriented and appropriate. I do not appreciate jugular venous pulse (JVP) elevation by physical exam. Lungs reveal diminished breath sounds over bases again and I do not appreciate any crackles or wheezes above. Heart exam still muffled heart sounds. No gallop appreciated. Abdomen: Soft. No significant peripheral edema. Neurologically intact. Laboratory-odonnell, sodium 130, potassium 3.4, BUN 44, creatinine 1.9, glucose 317. Troponin peaked at 4.8 and has been declining since. CBC still revealed WBC count 23,000, hemoglobin 13, hematocrit 42 and platelet count 256,000. ASSESSMENT/PLAN: Mr. Giang is a 77-year-old man who presented with florid congestive heart failure. Echocardiogram revealed ejection fraction (EF) approximately 10% percent global in nature. I do assume that this is most likely cardiomyopathy even though his troponin is elevated. He never had any chest discomfort. We will continue therapies for congestive heart failure. I am going to add spironolactone to his furosemide and will give him a small dose of hydralazine with holding parameters for blood pressure. He is also on a tiny dose of carvedilol. So far, he has been improving, but his prognosis is certainly guarded. I spoke with him extensively about his wishes and about further management. He still is refusing consideration of angiogram. The sad news is that it is probably mostly financially motivated, but he is firm in his decision. Consequently, he is not going to be a candidate for defibrillator either for the same reason. I am hoping that his opinion will eventually change. I do expect that he will stay in the hospital for several more days.
[2018-05-15] MEDS ORDERED: POTASSIUM CHLORIDE 10 MEQ SR TABLET PO ONE (09:00)
--- NOTE | 2018-05-15 09:03 | ECGEPIP ---
Stationary ECG Study [facility] Test Date: 2018-05-15 Pat Name: RACHEL BETANCOURT Department: Room: [place] [address] Gender: M Game Moderator: LESLIE : 1940 Requested By: Emi Boston Order Number: [id number] Reading MD: Silas Ye Measurements Intervals [place] Rate: 106 P: 15 [place]: 124 QRS: 74 QRSD: 105 T: 0 QT: 386 QTc: 514 Interpretive Statements SINUS TACHYCARDIA LOW QRS VOLTAGE IN EXTREMITY LEADS POSSIBLE ANTERIOR MYOCARDIAL INFARCTION, OF INDETERMINATE AGE Nonspecific ST-T wave abnormalities Electronically Signed On 05-15-2018 9:03:29 EST by Silas Ye
[2018-05-15] MEDS: SPIRONOLACTONE 12.5MG PER 1/2 TABLET PO SCH (11:44)
[2018-05-15] MEDS: ASPIRIN 325 MG TAB PO SCH (11:44)
[2018-05-15] MEDS: AZITHROMYCIN 250 MG TAB PO SCH (11:45)
[2018-05-15] MEDS: CARVedilol 3.125 MG TAB PO SCH ×2 (11:45→22:26)
[2018-05-15] MEDS: FUROSEMIDE 100 MG/10 ML VIAL (J1940) IV SCH ×3 (12:01→20:18)
--- NOTE | 2018-05-15 18:50 | IPN ---
DATE: 05/15/2017 SUBJECTIVE: Patient is seen and examined in the room today. Patient states he still has some shortness of breath especially during exertion, but he feels that he is feeling better than a few days ago. Denies any chest pain. Denies any shortness of breath. OBJECTIVE: VITAL SIGNS: Temperature is 98, pulse 104, respiration rate is 18, blood pressure 113/65, pulse oximetry 93% on room air. GENERAL: No sign of acute distress. Patient is alert and awake. Comfortable. HEENT: Normocephalic, atraumatic. Extraocular motor grossly intact. CARDIOVASCULAR: Tachycardic. Positive S1, S2. LUNGS: Decreased breath sounds. No sign of further wheezes or crackles appreciated. ABDOMEN: Soft, nontender. EXTREMITIES: No edema. LABORATORY DATA: WBC is 23.4, hemoglobin 13.6, hematocrit 42.6, platelet count is 256. Sodium is 130, potassium 3.4, chloride 99, carbon dioxide 19. BUN is 44, creatinine is 1.89. GFR 36.9, fasting glucose 317. Calcium is 9, magnesium 2. Total CK is 76. Troponin I is 1.75. ASSESSMENT AND PLAN: 1. Systolic and diastolic congestive heart failure exacerbation. Echocardiogram was performed. Patient was found to have ejection fraction (EF) of approximately 10%. Patient also had a grade 2 diastolic dysfunction. Patient is currently on IV Lasix and spironolactone. Patient has a good negative fluid balance. Patient is on fluid restriction. 2. Elevated troponin. Cardiology consulted. Patient refused cardiac catheterization. Currently patient is on aspirin, Lipitor and Lovenox. 3. Leukocytosis. Patient never had complaint about fever or chills. Blood culture remains negative. Urine culture is negative. CT of the chest performed and demonstrates the possible differential include pneumonia versus pulmonary hemorrhages, acute interstitial pneumonia, hypertensive pneumonitis. I have ordered sputum culture, however, no sample is available at this moment. Patient is on empiric antibiotics. Peripheral smear is also performed and demonstrates patient has some leukocytosis with scattered smudge cells. Flow cystometry of peripheral blood ordered. The patient may need to rule out lymphoproliferative disorder. No blasts are seen on the peripheral smear. I have discussed with oncologist. Currently the patient has no thrombocytopenia, no anemia and patient would benefit from outpatient hematology followup. At the moment will wait for the flow cytometry results. 4. Acute renal failure. Renal ultrasound reviewed. Patient is being treated for decompensated congestive heart failure on diuretics. Eye Glass Frame Polisher consulted. Appreciate their assistance. 5. New onset type 2 diabetes. Insulin sliding scale. On consistent carbohydrate diet. 6. DVT prophylaxis. Patient is on Lovenox.
[2018-05-15 19:13] LABS: CALCIUM LEVEL 9.2 MG/DL (8.8-10.2); CREATININE FOR GFR 2.09 MG/DL (0.70-1.30); GLOMERULAR FILTRATION RATE 32.9 (>42); MAGNESIUM LEVEL 2.2 MG/DL (1.8-2.4); MB/CK RELATIVE INDEX 4.12 (< OR =4); POTASSIUM SERUM 3.9 MEQ/L (3.5-5.1)
[2018-05-15] MEDS: LEVEMIR (INSULIN DETEMIR) 1 UNITS/0.01ML SC SCH (21:13)
[2018-05-15] MEDS: ATORVASTATIN 20 MG TAB PO SCH (21:13)
[2018-05-16] VITALS (7 sets, daily range): BP systolic 98–117; BP diastolic 62–71
[2018-05-16] MEDS: **hydrALAZINE** 10 MG TAB PO SCH ×3 (06:00→21:51)
[2018-05-16] MEDS: cefTRIAXone SOD 1 GM in D5W MINI-BAG PLUS 50 ML IV SCH (06:15)
[2018-05-16] MEDS: SLF 3 ML SYR IV SCH ×3 (06:15→21:17)
[2018-05-16] MEDS: FUROSEMIDE 100 MG/10 ML VIAL (J1940) IV SCH ×2 (06:16→18:13)
[2018-05-16 07:24] LABS: HEMATOCRIT 42.4 % (42.0-52.0); HEMOGLOBIN 13.9 g/dl (13.5-17.5); MEAN CORPUSCULAR HGB CONC 32.8 g/dl (32.0-36.5); MEAN CORPUSCULAR VOLUME 82.3 fl (80.0-96.0); PLATELET COUNT, AUTOMATED 336 10^3/uL (150-450); RED BLOOD COUNT 5.15 10^6/uL (4.30-6.10)
[2018-05-16 07:30] LABS: WHITE BLOOD COUNT 27.8 10^3/uL (4.0-10.0)
[2018-05-16 07:56] LABS: CREATININE FOR GFR 1.99 MG/DL (0.70-1.30); GLOMERULAR FILTRATION RATE 34.8 (>42); MAGNESIUM LEVEL 2.2 MG/DL (1.8-2.4); POTASSIUM SERUM 4.1 MEQ/L (3.5-5.1)
[2018-05-16 08:06] LABS: ATYPICAL LYMPH 5 % (0-5); LYMPHOCYTES 54 % (16-52); MONOCYTES 1 % (0-8); NEUTROPHILS 40 % (35-75); PLATELET ESTIMATE NORMAL (NORMAL)
[2018-05-16 08:08] LABS: C REACTIVE PROTEIN QUANTITATIV 6.91 MG/DL (0.00-0.30)
[2018-05-16] MEDS: ASPIRIN 325 MG TAB PO SCH (08:46)
[2018-05-16] MEDS: AZITHROMYCIN 250 MG TAB PO SCH (08:46)
[2018-05-16] MEDS: SPIRONOLACTONE 12.5MG PER 1/2 TABLET PO SCH (08:46)
[2018-05-16] MEDS: HumaLOG INSULIN (NovoLOG) PER UNIT SC SCH ×4 (08:48→21:21)
[2018-05-16] MEDS: CARVedilol 3.125 MG TAB PO SCH ×2 (08:48→21:16)
--- NOTE | 2018-05-16 08:58 | IPN ---
DATE OF SERVICE: 05/16/2018 Unfortunately, Mr. Giang is feeling worse today than he did yesterday. He said he had a lot of paroxysmal nocturnal dyspnea (PND) and orthopnea last night, and he also had some chest discomfort, which is the first time he complains about it. It lasted only about 10 minutes but was pressure-like and left-sided. He felt immediately better after he received oxygen in respect of both dyspnea and chest discomfort. Unfortunately, some of his medications were held due to low blood pressure like, for example, he did not get his hydralazine this morning. Vital signs: Blood pressure was documented at 98/70, heart rate has been in 100 and teens. He is afebrile. Saturation 97% on 2 liters of oxygen. His fluid balance yesterday was poorly documented, but it looks like he put out only about a liter, which again because the output is not all registered, it may not be completely accurate, but the weight is actually slightly up at 81.5 kg. He is alert and oriented and appropriate. His jugular venous pressure (JVP) looks a little higher today. I would say about 3 cm above the clavicle. Lungs still diminished over bases and occasional crackle above. Good air movement. Heart examination: Regular with tachycardia with gallop. Abdomen is soft. Extremities are free of edema. LABORATORY-MONACO: Sodium 134, potassium 4.1, BUN is 48, creatinine 1.99, and glucose 211. His troponin came down to 1.0 last night, and CRP is 6.9. ASSESSMENT AND PLAN: Mr. Giang is a 77-year-old man who has, in my opinion, most likely chronic cardiomyopathy that was recently aggravated, either by acute coronary syndrome or some form of viral infection. He is still in florid heart failure. Unfortunately, he has not put out much urine with his current diuretics; and on top of it, the dose of furosemide was reduced by nephrology. My recommendation would be to increase the dose at least to 120 mg twice a day, but I will leave it to nephrology's discretion at this point. Otherwise, we are limited by a low blood pressure with administration of medications. If possible, he will get hydralazine. I am very reluctant to use dobutamine in this condition because the patient is already tachycardic, and also he is DO NOT INTUBATE (DNI) and DO NOT RESUSCITATE (DNR); and consequently, there would not be an option of defibrillation in case he goes into ventricular tachycardia; and finally, he has evidence for myocardial necrosis with elevated troponin; so, I would like to stay away from pressors if only possible. I had a discussion with the patient about his further management. Today, he left the door open for possibility of coronary angiography. He said that he will talk about it with his later today and will let us know, but there are no immediate plans to proceed on his part. His condition is certainly guarded, and he is much sicker than it appears at first glance. SHRUTHI
[2018-05-16 09:48] LABS: ABG BASE EXCESS -2.1 (-2.0-2.0); ABG O2 SATURATION 98.8 % (95.0-99.0); ABG PARTIAL PRESSURE CO2 24.3 mmHg (35.0-45.0); ABG STANDARD HCO3 22.8 MEQ/L (22.0-26.0); ABG TOTAL CO2 19.8 MEQ/L (23.0-31.0); ABG pH (ARTERIAL) 7.512 UNITS (7.350-7.450)
--- NOTE | 2018-05-16 10:50 | IPN ---
DATE: 05/15/2018 SUBJECTIVE: Patient was seen and examined at the bedside today, morning. Patient is hemodynamically stable. He reports that his shortness of breath is improving. His echocardiogram results came back. He has severe systolic congestive heart failure with an ejection fraction (EF) of around 10% with grade 2 diastolic dysfunction. Renal function continues to improve with diuresis. Creatinine is down to 1.8. He still has persistent leukocytosis. Peripheral smear showed predominantly lymphocytosis. Flow cytometry results are pending. OBJECTIVE: VITAL SIGNS: Temperature is 98 degrees Fahrenheit. Blood pressure is 92/67. Pulse is 113. Respiratory rate of 22. Saturating 91% in room air. INTAKE AND OUTPUT: Urine output recorded as 475 mL so far today. Weight on the bed scale is 80.9 kg. PHYSICAL EXAMINATION: GENERAL: Patient is awake, alert, oriented times three, sitting up in the bed, in no apparent distress. HEAD AND NECK EXAM: Extraocular muscles intact. Pupils equally round and reactive to light. Neck is supple. There is mildly elevated jugular venous distention (JVD). CARDIOVASCULAR: S1, S2, tachycardia. Trace edema of the bilateral lower extremities. RESPIRATORY: Mildly decreased breath sounds at the bases. Otherwise, no active rales or rhonchi. ABDOMEN: Is soft, positive bowel sounds, nontender. No organomegaly. MUSCULOSKELETAL: No clubbing or cyanosis. Pulses are 2+. CENTRAL NERVOUS SYSTEM (COLLECTION SUPPORT SPECIALIST): No focal deficit. Power is 5/5 in all extremities. LAB REVIEW: Complete blood count (CBC) showed a WBC of 23.4. Hemoglobin is 13.6. Platelets are 256. Basic metabolic panel (BMP) showed sodium 132, potassium 3.9, chloride 97, bicarbonate 21, BUN 47. Creatinine was 1.8 in the morning and 2.09 in the afternoon. Troponin is nicely coming down to 1 today. IMAGING: Echocardiogram results showed that patient has normal LV size but severe global hypokinesis with an estimated left ventricular ejection fraction of around 10% with grade 2 diastolic dysfunction. No significant valvular disease. Elevated central venous pressure with moderate pulmonary hypertension. CURRENT INPATIENT MEDICATIONS: Patient's medications were all reviewed by me. He continues to be on IV Rocephin. His Lasix dose was changed to 60 mg IV every 12 hours with holding parameters because patient was not receiving the higher dose because of low blood pressures. He has been started on Aldactone 12.5 mg by mouth daily. He was also given a dose of potassium chloride 40 mEq today, morning. ASSESSMENT AND PLAN: 1. Acute renal failure. It is most likely cardiorenal in nature. Patient has severe decompensated combined systolic and diastolic congestive heart failure. It is okay to diurese the patient at this point. Patient now also has diabetes mellitus, type 2, which was undiagnosed for many years. However, urinalysis done yesterday evening did not show any significant proteinuria or hematuria. 2. Acute decompensated combined systolic and diastolic congestive heart failure. Patient has left ventricular ejection fraction (LVEF) of around 10%. He is refusing transfer to [place] or cardiac catheterization. Cardiology is already involved. He is on low dose of Coreg, low dose hydralazine, and he is on IV Lasix. Spironolactone has been added today. Continue current medical management. 3. Hyperkalemia. Patient was hyperkalemic on arrival. However, because of diuresis, his potassium has decreased. He has been started on spironolactone. He was also given oral potassium. 4. Hyponatremia. It is hypervolemic hyponatremia. Sodium level is improving with diuresis. 5. New onset diabetes mellitus, type 2. Patient is on insulin Levemir and insulin sliding scale. Glucose levels are improving now. 6. Acute coronary syndrome. Patient most likely has ischemic cardiomyopathy. His medications are being optimized. Troponin level is trending down. Patient is refusing cardiac catheterization. 7. Persistent leukocytosis. Patient has a predominant lymphocytosis on peripheral smear. His flow cytometry result is pending. It is high likelihood that patient might have chronic lymphocytic leukemia.
--- NOTE | 2018-05-16 12:29 | ECGEPIP ---
Stationary ECG Study [facility] Test Date: 2018-05-15 Pat Name: RACHEL BETANCOURT Department: Room: [place] [address] Gender: M Chief Of Planning: JAYJAY : 1940 Requested By: CODI MURPHY Order Number: [id number] Reading MD: Silas Ye Measurements Intervals [place] Rate: 115 P: 23 [place]: 141 QRS: 71 QRSD: 95 T: 32 QT: 364 QTc: 504 Interpretive Statements SINUS TACHYCARDIA LOW QRS VOLTAGE IN EXTREMITY LEADS Nonspecific ST-T wave abnormalities Electronically Signed On 05-16-2018 12:28:58 EST by Silas Ye
--- NOTE | 2018-05-16 18:32 | IPNPDOC ---
Text Note Date of Service The patient was seen on 05/16/18. NOTE SUBJECTIVE: Patient is seen and examined in the room today. Patient had acute left sided pressure-like chest pain yesterday. Patient started on oxygen support. Patient states he still can not make up his mild with regarding to cardiac catheterization. DNR/DNI status confirmed with patient. OBJECTIVE: VITAL SIGNS: Listed below. GENERAL: No sign of acute distress. Patient is alert and awake. Comfortable. HEENT: Normocephalic, atraumatic. Extraocular motor grossly intact. CARDIOVASCULAR: Tachycardic. Positive S1, S2. LUNGS: Decreased breath sounds. Crackles noted. ABDOMEN: Soft, nontender. EXTREMITIES: No edema. LABORATORY DATA: Listed below. ASSESSMENT AND PLAN: #. Systolic and diastolic congestive heart failure exacerbation. - Echocardiogram on 05/14/18. EF of 10%. Grade 2 diastolic dysfunction. Patient is currently on IV Lasix and PO spironolactone. Patient is on fluid restriction. #. Elevated troponin. - Cardiology consulted. - Patient still could not make decision with regarding to cardiac catheterization. Currently patient is on aspirin, Lipitor and Lovenox. #. Leukocytosis. - CT of the chest performed and demonstrates the possible differential include pneumonia versus pulmonary hemorrhages, acute interstitial pneumonia, hypertensive pneumonitis. Sputum culture ordered but patient can not provide sample. On empirical antibiotics. - No fever or chills. Blood culture remains negative. Urine culture is negative. Peripheral smear demonstrated leukocytosis with scattered smudge cells. No blasts are seen on the peripheral smear. May need to rule out lymphoproliferative disorder. Flow cystometry of peripheral blood ordered. Discussed with on-call oncology. patient has no thrombocytopenia, no anemia and patient would benefit from outpatient hematology followup. At the moment will wait for the flow cytometry results. #. Acute renal failure. Renal ultrasound reviewed. - Patient is being treated for decompensated congestive heart failure on d iuretics. Carbon Grinder consulted. Appreciate their assistance. #. New onset type 2 diabetes. - Insulin sliding scale. On consistent carbohydrate diet. #. DVT prophylaxis. Patient is on Lovenox. VS,Fishbone, I+O VS, Fishbone, I+O Laboratory Tests 05/15/18 18:18 Calcium Level 9.2, Total Creatine Kinase 51 05/16/18 07:12 Calcium Level 9.0, Red Blood Count 5.15, Mean Corpuscular Volume 82.3, Mean Corpuscular Hemoglobin 27.0, Mean Corpuscular Hemoglobin Concent 32.8, Red Cell Distribution Width 14.2, Lymphocytes # (Auto) Vital Signs Date Time Temp Pulse Resp B/P (MAP) Pulse Ox O2 Delivery O2 Flow Rate FiO2 05/16/18 16:00 97.1 122 20 100/65 (77) 97 Nasal Cannula 2.0 I&O- Last 24 Hours up to 6 AM 05/16/18 05:59 Intake Total 890 ml Output Total 975 ml Balance -85 ml CODI MURPHY DO May 16, 2018 18:32
[2018-05-16] MEDS: RAMELTEON 8 MG TAB (ROZEREM) PO PRN (21:13)
[2018-05-16] MEDS: ATORVASTATIN 20 MG TAB PO SCH (21:13)
[2018-05-16] MEDS: LEVEMIR (INSULIN DETEMIR) 1 UNITS/0.01ML SC SCH (21:17)
[2018-05-17] MEDS: FUROSEMIDE 100 MG/10 ML VIAL (J1940) IV SCH ×4 (00:08→16:46)
[2018-05-17 04:00] VITALS: BP 102/59
[2018-05-17 06:03] LABS: HEMATOCRIT 41.2 % (42.0-52.0); HEMOGLOBIN 13.4 g/dl (13.5-17.5); MEAN CORPUSCULAR HEMOGLOBIN 26.9 pg (27.0-33.0); MEAN CORPUSCULAR HGB CONC 32.5 g/dl (32.0-36.5); MEAN CORPUSCULAR VOLUME 82.6 fl (80.0-96.0); PLATELET COUNT, AUTOMATED 316 10^3/uL (150-450); RED BLOOD COUNT 4.99 10^6/uL (4.30-6.10); WHITE BLOOD COUNT 26.3 10^3/uL (4.0-10.0)
[2018-05-17 06:21] LABS: CALCIUM LEVEL 8.5 MG/DL (8.8-10.2); CREATININE FOR GFR 1.91 MG/DL (0.70-1.30); GLOMERULAR FILTRATION RATE 36.5 (>42); MAGNESIUM LEVEL 2.2 MG/DL (1.8-2.4); POTASSIUM SERUM 3.6 MEQ/L (3.5-5.1)
[2018-05-17] MEDS: ENOXAPARIN 80 MG/0.8 ML SYRINGE (J1650) SC SCH (06:32)
[2018-05-17] MEDS: SLF 3 ML SYR IV SCH ×3 (06:33→21:32)
[2018-05-17] MEDS: cefTRIAXone SOD 1 GM in D5W MINI-BAG PLUS 50 ML IV SCH (06:33)
[2018-05-17] MEDS: **hydrALAZINE** 10 MG TAB PO SCH ×2 (06:59→14:00)
--- NOTE | 2018-05-17 07:04 | IPN ---
DATE OF SERVICE: 05/16/2018 SUBJECTIVE: Patient was seen and examined at the bedside today morning. Patient is afebrile, hemodynamically stable. His renal function is stable, creatinine is down to 1.9 today. He is tolerating low dose of diuretics. Patient is telling me today that he has changed his mind, now he is thinking about getting transferred to [place]. He wants to talk to cardiology. OBJECTIVE: VITAL SIGNS: Temperature is 96.2 degrees Fahrenheit. Blood pressure is 100/71. Pulse is 113. Respiratory rate of 18. Saturating 97% on 2 liters. INTAKE AND OUTPUT: Urine output recorded as 750 mL yesterday, 1200 mL so far today since overnight. Weight on the bed scale is 81.5 kg. PHYSICAL EXAMINATION: GENERAL: Patient is awake, alert, oriented times three, sitting up in the bed, in no apparent distress. HEAD AND NECK EXAM: Extraocular muscles intact. Pupils equally round and reactive to light. Neck is supple. There is mildly elevated jugular venous distention (JVD). CARDIOVASCULAR: S1, S2, tachycardia. Trace edema of the bilateral lower extremities. RESPIRATORY: Mildly decreased breath sounds at the bases with mild crepitations on deep inspiration. ABDOMEN: Soft, obese, positive bowel sounds, nontender. No organomegaly. MUSCULOSKELETAL: No clubbing or cyanosis. Pulses are 2+. CENTRAL NERVOUS SYSTEM (SOFTWARE DESIGN ENGINEER): No focal deficit. Power is 5/5 in all extremities. LAB REVIEW: CBC showed a WBC of 27.8. Hemoglobin is 13.9. Platelets are 336. ABG done today morning showed a pH of 7.5, pCO2 of 24, pO2 of 112, bicarb is 19, oxygen saturation is 98%. BMP done today morning showed sodium 134, potassium 4.1, chloride 99, bicarbonate 22, BUN 48, creatinine is 1.9, calcium is 9, magnesium is 2.2. C-reactive protein is 6.9. Pathology: Flow cytometry results are still pending. CURRENT INPATIENT MEDICATIONS: Patient's medications were all reviewed by me. He continues to be on IV antibiotics. He is also getting Lasix 60 mg IV every 12 hours. ASSESSMENT AND PLAN: 1. Acute renal failure, most likely cardiorenal in nature. Patient has decompensated combined systolic and diastolic congestive heart failure. Patient is being diuresed with Lasix 60 mg every 12 hours, however he does not have significant negative fluid balance. I have increased the dose of Lasix to 60 mg IV every 6 hours. 2. Acute decompensated combined systolic and diastolic congestive heart failure. Patient has a severely reduced ejection fraction of around 10%. He was initially advised to go to [place] for cardiac catheterization, however he refused it. He is changing his mind now. Cardiology is already seeing him. Continue current dose of hydralazine and Coreg. As mentioned above, I have increased the Lasix dose to 60 mg every 6 hours. 3. Hyponatremia. Patient has hypervolemic hyponatremia. Sodium level is improving with IV diuresis. 4. Persistent leukocytosis. Patient had lymphocytosis on peripheral smear. Flow cytometry result are pending. High likelihood of chronic lymphocytic leukemia. 5. New onset diabetes mellitus, type 2. Patient is currently on insulin sliding scale and Levemir. Avoid use of metformin in this patient. 6. Acute coronary syndrome. Patient has severe ischemic cardiomyopathy with decompensated heart failure now. Troponin levels are slowly trending down. Continue current dose of Lipitor, aspirin, Coreg, weight based Lovenox.
[2018-05-17] MEDS: CARVedilol 3.125 MG TAB PO SCH (07:53)
[2018-05-17] MEDS: SPIRONOLACTONE 12.5MG PER 1/2 TABLET PO SCH (07:53)
[2018-05-17] MEDS: AZITHROMYCIN 250 MG TAB PO SCH (07:53)
[2018-05-17] MEDS: ASPIRIN 325 MG TAB PO SCH (07:53)
[2018-05-17] MEDS: HumaLOG INSULIN (NovoLOG) PER UNIT SC SCH ×4 (07:54→21:49)
[2018-05-17 08:00] VITALS: BP 98/58
--- NOTE | 2018-05-17 08:50 | IPN ---
DATE: 05/17/2018 The patient is feeling little bit better today but he tells me he is tired. He did not sleep very well even though he denies having paroxysmal nocturnal dyspnea (PND). He says that with oxygen in place he is feeling fine as far as the breathing is concerned. Denies any chest pain. Yesterday he had a discussion with his and decided to proceed with coronary angiography. VITAL SIGNS: Blood pressure 98/58, heart rate 110. He is alert and oriented appropriate. His JVP is only minimally elevated, barely noticeable left clavicle. Lungs are relatively clear even though still diminished breath sounds over bases. Heart exam irregular, tachycardia. Positive S3. No murmur. Abdomen is soft. No tenderness. Extremities are free of edema. Neurologically intact. Laboratory odonnell, sodium 134, potassium 3.6, BUN 51, creatinine 1.9, GFR 36 and glucose 270. CBC WBC count 26,000, hemoglobin 13.4, hematocrit 41 and platelet count 316,000. ASSESSMENT/PLAN Mr. Giang is a 77-year-old man who presents with congestive heart failure and is found to have severe left ventricular systolic dysfunction and elevated troponin peaking around 4 without any anginal symptoms. So far has been treated for congestive heart failure. Unfortunately, the underlying renal dysfunction and low blood pressure limit our options, but nevertheless he is responding favorably. Certainly we are accomplishing some diuresis and he is better compensated. I will try to advance the dose of carvedilol today to 6.25 mg twice a day. He does have several other issues. First of all he does have renal insufficiency that is followed by nephrology. I believe there is a component of cardiorenal syndrome, but because he has been diabetic that certainly diabetic nephropathy is a consideration as well, obstructive etiology was ruled out. 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 I had a discussion with the patient regarding his wishes. He reversed his old refusal to proceed with coronary angiography. Subsequently I talked to Dr. Gross crate repairer at [facility], discussed the situation and we agreed that we will keep the patient in [place] for the weekend and tentatively will plan on transfer Sunday when he is better hemodynamically compensated. In the interim, I am going to add Plavix to his regimen and now I believe we can discontinue the full therapeutic dose of Lovenox and replace it with prophylactic dose only. MTDD
[2018-05-17 12:00] VITALS: BP 98/62
[2018-05-17] MEDS: ONDANSETRON 4MG/2ML VIAL (J2405) IV PRN (12:04)
[2018-05-17] MEDS: POTASSIUM CHLORIDE 10% LIQ 20 MEQ/15 ML UDC PO SCH ×2 (12:04→21:29)
[2018-05-17] MEDS: CLOPIDOGREL 75 MG TAB PO SCH (12:04)
[2018-05-17 14:32] LABS: MB/CK RELATIVE INDEX 4.09 (< OR =4); TROPONIN I 0.66 NG/ML (< 0.10)
[2018-05-17 16:00] VITALS: BP 84/64
--- NOTE | 2018-05-17 17:53 | IPNPDOC ---
Text Note Date of Service The patient was seen on 05/17/18. NOTE SUBJECTIVE: Patient is seen and examined in the room today. Patient still has feeling of shortness of breath. Shortness of breath is worsened with any exertion. Patient finally agrees for coronary angiogram. OBJECTIVE: VITAL SIGNS: Listed below. GENERAL: Mild distress. Patient is alert and awake. HEENT: Normocephalic, atraumatic. Extraocular motor grossly intact. CARDIOVASCULAR: Tachycardic. Positive S1, S2. LUNGS: Decreased breath sounds. Crackles noted. ABDOMEN: Soft, nontender. EXTREMITIES: No edema. LABORATORY DATA: Listed below. ASSESSMENT AND PLAN: #. Systolic and diastolic congestive heart failure exacerbation. - Echocardiogram on 05/14/18. EF of 10%. Grade 2 diastolic dysfunction. Patient is currently on IV Lasix and PO spironolactone. Patient is on fluid restriction. #. Elevated troponin. - Cardiology consulted. - Patient still could not make decision with regarding to coronary angiogram. Currently patient is on aspirin, coreg, Lipitor. Lovenox is adjusted from therapeutic dosage to prophylactic dosage per recommendation. #. Leukocytosis. - CT of the chest performed and demonstrates the possible differential include pneumonia versus pulmonary hemorrhages, acute interstitial pneumonia, hypertensive pneumonitis. Sputum culture ordered but patient can not provide sample. On empirical antibiotics. - No fever or chills. Blood culture remains negative. Urine culture is negative. Peripheral smear demonstrated leukocytosis with scattered smudge cells. No blasts are seen on the peripheral smear. May need to rule out lymphoproliferative disorder. Discussed with on-call oncology. patient has no thrombocytopenia, no anemia and patient would benefit from outpatient hematology followup. 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 #. Acute renal failure. Renal ultrasound reviewed. - Patient is being treated for decompensated congestive heart failure on diuretics. Librarian [employer] consulted. Appreciate their assistance. #. New onset type 2 diabetes. - Insulin sliding scale. On consistent carbohydrate diet. #. DVT prophylaxis. Patient is on Lovenox. VS,Fishbone, I+O VS, Fishbone, I+O Laboratory Tests 05/17/18 05:38 Red Blood Count 4.99, Mean Corpuscular Volume 82.6, Mean Corpuscular Hemoglobin 26.9 L, Mean Corpuscular Hemoglobin Concent 32.5, Red Cell Distribution Width 14.2, Calcium Level 8.5 L Vital Signs Date Time Temp Pulse Resp B/P (MAP) Pulse Ox O2 Delivery O2 Flow Rate FiO2 05/17/18 16:00 4.0 05/17/18 16:00 96.7 111 20 84/64 (61) 99 Nasal Cannula I&O- Last 24 Hours up to 6 AM 05/17/18 06:00 Intake Total 640 ml Output Total 1400 ml Balance -760 ml CODI MURPHY DO May 17, 2018 17:52
[2018-05-17 20:00] VITALS: BP 92/63
[2018-05-17 20:14] LABS: MB/CK RELATIVE INDEX 4.59 (< OR =4); TROPONIN I 0.47 NG/ML (< 0.10)
[2018-05-17] MEDS ORDERED: CARVedilol 6.25 MG TAB PO SCH (21:00)
[2018-05-17] MEDS: RAMELTEON 8 MG TAB (ROZEREM) PO PRN (21:28)
[2018-05-17] MEDS: ATORVASTATIN 20 MG TAB PO SCH (21:28)
[2018-05-17] MEDS: LEVEMIR (INSULIN DETEMIR) 1 UNITS/0.01ML SC SCH (21:30)
[2018-05-17] MEDS ORDERED: hydrOXYzine 25 MG TAB PO ONE (22:45)
[2018-05-17 23:30] VITALS: BP 84/50
[2018-05-18] VITALS (33 sets, daily range): BP systolic 75–132; BP diastolic 40–73
--- NOTE | 2018-05-18 00:01 | ECGEPIP ---
Stationary ECG Study [facility] Test Date: 2018-05-17 Pat Name: RACHEL BETANCOURT Department: Room: [place] [address] Gender: M Digital Production Operator: CONNIE : [id number] Requested By: CODI MURPHY Order Number: [id number] Reading MD: Silas Ye Measurements Intervals [place] Rate: 114 P: 22 NV: 139 QRS: 94 QRSD: 101 T: -12 QT: 358 QTc: 494 Interpretive Statements SINUS TACHYCARDIA BORDERLINE RIGHT AXIS DEVIATION Low QRS complex voltage in the limb leads Nonspecific ST-T wave abnormalities Similar to tracing done 05-15-18 Electronically Signed On 05-18-2018 0:01:22 EST by Silas Ye
[2018-05-18] MEDS: FUROSEMIDE 100 MG/10 ML VIAL (J1940) IV SCH ×2 (00:34→05:44)
[2018-05-18 01:11] LABS: MB/CK RELATIVE INDEX 4.09 (< OR =4); TROPONIN I 0.53 NG/ML (< 0.10)
[2018-05-18] MEDS ORDERED: NS 250 ML IV ONE (02:45)
[2018-05-18] MEDS: cefTRIAXone SOD 1 GM in D5W MINI-BAG PLUS 50 ML IV SCH (05:41)
[2018-05-18] MEDS: SLF 3 ML SYR IV SCH ×3 (05:44→21:01)
[2018-05-18 05:54] LABS: HEMATOCRIT 45.4 % (42.0-52.0); HEMOGLOBIN 14.1 g/dl (13.5-17.5); MEAN CORPUSCULAR HEMOGLOBIN 26.3 pg (27.0-33.0); MEAN CORPUSCULAR HGB CONC 31.1 g/dl (32.0-36.5); MEAN CORPUSCULAR VOLUME 84.7 fl (80.0-96.0); RED BLOOD COUNT 5.36 10^6/uL (4.30-6.10)
[2018-05-18 06:27] LABS: CALCIUM LEVEL 8.8 MG/DL (8.8-10.2); CREATININE FOR GFR 2.86 MG/DL (0.70-1.30); GLOMERULAR FILTRATION RATE 22.9 (>42); MAGNESIUM LEVEL 2.5 MG/DL (1.8-2.4); POTASSIUM SERUM 5.7 MEQ/L (3.5-5.1)
[2018-05-18 06:54] LABS: WHITE BLOOD COUNT 41.4 10^3/uL (4.0-10.0)
[2018-05-18 06:55] LABS: PLATELET COUNT, AUTOMATED 421 10^3/uL (150-450)
[2018-05-18] MEDS: HumaLOG INSULIN (NovoLOG) PER UNIT SC SCH ×4 (07:30→20:42)
[2018-05-18 08:38] LABS: HEMATOCRIT 48.2 % (42.0-52.0); HEMOGLOBIN 15.3 g/dl (13.5-17.5); MEAN CORPUSCULAR HEMOGLOBIN 27.3 pg (27.0-33.0); MEAN CORPUSCULAR HGB CONC 31.7 g/dl (32.0-36.5); MEAN CORPUSCULAR VOLUME 86.1 fl (80.0-96.0); PLATELET COUNT, AUTOMATED 413 10^3/uL (150-450)
[2018-05-18 08:45] LABS: WHITE BLOOD COUNT 46.6 10^3/uL (4.0-10.0)
[2018-05-18] MEDS: DOBUTamine HCL 500,000 MCG in APPROPRIATE DILUENT 1 EA IV SCH (08:58)
[2018-05-18] MEDS ORDERED: METOPROLOL SUCC (TopROL XL) 50MG **XL** TAB PO SCH (09:00)
[2018-05-18] MEDS ORDERED: ASPIRIN 81 MG ENTERIC TAB PO SCH (09:00)
[2018-05-18] MEDS ORDERED: ENTRESTO 24-26MG TABLET (SACUBITRIL/VALSARTAN) PO SCH (09:00)
[2018-05-18 09:05] LABS: ERYTHROCYTE SEDIMENTATION RATE 12 mm/hr (0-20)
[2018-05-18 09:09] LABS: ANISOCYTOSIS 1+; ATYPICAL LYMPH 4 % (0-5); BASOPHILS 1 % (0-4); LYMPHOCYTES 70 % (16-52); MONOCYTES 5 % (0-8); NEUTROPHILS 20 % (35-75); PLATELET ESTIMATE NORMAL (NORMAL)
[2018-05-18 09:10] LABS: ALBUMIN 3.2 GM/DL (3.2-5.2); BILIRUBIN,TOTAL 0.5 MG/DL (0.2-1.0); C REACTIVE PROTEIN QUANTITATIV 4.08 MG/DL (0.00-0.30); CALCIUM LEVEL 8.9 MG/DL (8.8-10.2); CREATININE FOR GFR 3.01 MG/DL (0.70-1.30); GLOMERULAR FILTRATION RATE 21.6 (>42); MB/CK RELATIVE INDEX 3.29 (< OR =4); POTASSIUM SERUM 5.5 MEQ/L (3.5-5.1); TOTAL PROTEIN 7.9 GM/DL (6.4-8.2); TROPONIN I 0.55 NG/ML (< 0.10)
--- NOTE | 2018-05-18 10:04 | REP ---
AP PORTABLE CHEST: 05/18/2018. Comparison: CT and AP portable chest 05/13/2018. Clinical history: Respiratory distress. Findings: The a density of bilateral airspace opacities in the lower lung zones has improved. There are bilateral effusions still present and there is lesser interstitial edema compared to the prior. Heart and mediastinal contours unchanged with some left ventricular configuration. The aorta and airway intact. Bones with degenerative changes spine and shoulders. Impression: 1. Improving interstitial pulmonary edema and lessening of the alveolar opacities in both lower lung zones. Pleural effusions persist. Heart size enlarged as before. Electronically Signed by Gareth Castro MD 05/18/2018 01:21 P
--- NOTE | 2018-05-18 11:21 | REP ---
AP PORTABLE CHEST: 05/18/2018 at 10:47 AM. Comparison: Portable chest at 08:00 AM this date and 05/13/2018. Clinical history: Central line placement. Findings: This supine examination shows a new right jugular central catheter with tip in the SVC. There is no evidence for gross pneumothorax. A small effusion is seen with blunting of the CP angles. There is more dense air space opacity in the perihilar and infrahilar lower lung zones then and previously. Cardiomegaly with left ventricular and atrial enlargement noted. Impression: 1. New indwelling right jugular central catheter with tip in SVC. No widening of the mediastinum but increase in air space opacities in the mid and lower lung zones and bilateral effusions noted. This may reflect some interval increase in pulmonary edema. No gross evidence for pneumothorax. Electronically Signed by Gareth Castro MD 05/18/2018 01:39 P
--- NOTE | 2018-05-18 11:35 | IPN ---
DATE OF SERVICE: 05/17/2018 SUBJECTIVE: Patient was seen and examined at the bedside today morning. Patient is afebrile, hemodynamically stable. He reports his shortness of breath is getting better. He reports that he is not able to sleep well at night. He is responding to the diuretics. Renal function is stable with a creatinine of 1.9. Flow cytometry results came back and showed chronic lymphocytic leukemia. OBJECTIVE: VITAL SIGNS: Temperature is 96.6 degrees Fahrenheit. Blood pressure is 98/62. Pulse is 100. Respiratory rate of 20. Saturating 98% on nasal cannula with 4 liters. INTAKE AND OUTPUT: Urine output recorded as 1.4 liters yesterday, 575 mL so far today since overnight. Weight on the bed scale is 80.2 kg. PHYSICAL EXAMINATION: GENERAL: Patient is awake, alert, oriented times three, sitting up in the bed, in no apparent distress. HEAD AND NECK EXAM: Extraocular muscles intact. Pupils equally round and reactive to light. Neck is supple. Mild elevation of the jugular venous distention (JVD) was noted. CARDIOVASCULAR: S1, S2, tachycardia. No edema of the bilateral lower extremities. RESPIRATORY: Mildly decreased breath sounds at the bases with mild crepitations on deep inspiration. ABDOMEN: Soft, obese, positive bowel sounds, nontender. No organomegaly. MUSCULOSKELETAL: No clubbing or cyanosis. Pulses are 2+. CENTRAL NERVOUS SYSTEM (CHIEF BUSINESS DEVELOPMENT OFFICER): No focal deficit. Power is 5/5 in all extremities. LAB REVIEW: CBC showed a WBC of 26.3. Hemoglobin 13.4. Platelets are 316. BMP showed sodium 134, potassium 3.6, chloride 99, bicarbonate 20, BUN 51, creatinine is 1.91 and it was 1.99 yesterday, calcium 8.5, magnesium is 2.2. Troponin latest is 0.47. 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 CURRENT INPATIENT MEDICATIONS: Patient's medications were all reviewed by me. He continues to be on IV ceftriaxone and azithromycin. His Coreg dose has been increased to 6.25 mg by mouth twice a day. He has also been started on Plavix. Lovenox dose has been changed to 30 mg subcutaneous daily. He continues to be on Lasix 60 mg IV every 6 hours. He has been started on potassium chloride 40 mEq by mouth twice a day. No other change in the medications today as compared with yesterday. ASSESSMENT AND PLAN: 1. Acute renal failure, most likely cardiorenal in nature. There is a possibility of diabetic nephropathy as well, but patient does not have significant proteinuria on the urinalysis. Okay to continue diuretics at this point. Renal function is stable with creatinine fluctuating at around 1.9. 2. Acute decompensated combined systolic and diastolic congestive heart failure. Patient has NSTEMI and severely reduced ejection fraction of 10%. He is tolerating the IV diuretics. At this point, blood pressure is staying in the 90s to 100s. Continue current diuretic dose with holding parameters. 3. Acute coronary syndrome. The patient's troponin levels are trending down. He has severe ischemic cardiomyopathy. Coreg dose has been increased by cardiology. He continues to be on aspirin. Plavix has been added. Lovenox dose has been decreased to 30 mg subcutaneous daily which is a prophylactic dose only. Patient has agreed for coronary angiogram. He is tentatively supposed to be transferred on Sunday for coronary angiogram. 4. Chronic lymphocytic leukemia. Flow cytometry results came back as CLL. Infection is being treated. The rest of the workup and management will be as outpatient by hematology/oncology. 5. New onset diabetes mellitus type 2. Glucose levels are better controlled now. Continue current dose of insulin sliding scale and Levemir.
[2018-05-18 11:47] LABS: ABG BASE EXCESS -7.1 (-2.0-2.0); ABG HCO3 14.4 MEQ/L (22.0-26.0); ABG O2 SATURATION 98.4 % (95.0-99.0); ABG PARTIAL PRESSURE CO2 21.1 mmHg (35.0-45.0); ABG PARTIAL PRESSURE O2 108.2 mmHg (75.0-100.0); ABG STANDARD HCO3 18.8 MEQ/L (22.0-26.0); ABG pH (ARTERIAL) 7.452 UNITS (7.350-7.450)
[2018-05-18 11:50] LABS: MIXED BASE EXCESS -6.6; MIXED HCO3 14.8 MEQ/L; MIXED O2 SATURATION 98.5 %; MIXED PARTIAL PRESSURE CO2 21.2 mmHg; MIXED PARTIAL PRESSURE O2 114.7 mmHg; MIXED PH 7.461 UNITS; MIXED STANDARD HCO3 19.2 MEQ/L; MIXED TOTAL CO2 15.4 MEQ/L
[2018-05-18] MEDS: AZITHROMYCIN 250 MG TAB PO SCH (13:08)
[2018-05-18] MEDS: ENOXAPARIN 30 MG/0.3 ML SYR (J1650) SC SCH (13:08)
[2018-05-18 13:09] LABS: HEMATOCRIT 42.6 % (42.0-52.0); HEMOGLOBIN 13.6 g/dl (13.5-17.5); MEAN CORPUSCULAR HEMOGLOBIN 26.7 pg (27.0-33.0); MEAN CORPUSCULAR HGB CONC 31.9 g/dl (32.0-36.5); MEAN CORPUSCULAR VOLUME 83.7 fl (80.0-96.0); PLATELET COUNT, AUTOMATED 331 10^3/uL (150-450); RED BLOOD COUNT 5.09 10^6/uL (4.30-6.10)
[2018-05-18] MEDS: CLOPIDOGREL 75 MG TAB PO SCH (13:09)
[2018-05-18 13:11] LABS: WHITE BLOOD COUNT 38.2 10^3/uL (4.0-10.0)
[2018-05-18 13:38] LABS: ALBUMIN 3.1 GM/DL (3.2-5.2); BILIRUBIN,TOTAL 0.3 MG/DL (0.2-1.0); CALCIUM LEVEL 8.5 MG/DL (8.8-10.2); CREATININE FOR GFR 3.11 MG/DL (0.70-1.30); GLOMERULAR FILTRATION RATE 20.8 (>42); POTASSIUM SERUM 5.3 MEQ/L (3.5-5.1); TOTAL PROTEIN 6.9 GM/DL (6.4-8.2)
[2018-05-18 14:17] LABS: ATYPICAL LYMPH 2 % (0-5); LYMPHOCYTES 72 % (16-52); MONOCYTES 3 % (0-8); NEUTROPHILS 23 % (35-75); PLATELET ESTIMATE NORMAL (NORMAL); SMUDGE CELLS 2+
[2018-05-18 14:18] LABS: ANISOCYTOSIS 1+
[2018-05-18 14:18] LABS: SMUDGE CELLS 1+
[2018-05-18 14:43] LABS: MIXED BASE EXCESS -6.5; MIXED HCO3 17.5 MEQ/L; MIXED O2 SATURATION 58.3 %; MIXED PARTIAL PRESSURE CO2 30.8 mmHg; MIXED PARTIAL PRESSURE O2 34.5 mmHg; MIXED PH 7.372 UNITS; MIXED STANDARD HCO3 18.4 MEQ/L; MIXED TOTAL CO2 18.4 MEQ/L
--- NOTE | 2018-05-18 17:01 | IPN ---
DATE: 05/18/2018 SUBJECTIVE: The patient reports his breathing is much better than it was during the night. At present, he is not having any paroxysmal nocturnal dyspnea (PND) and his breathing feels comfortable at rest. No chest pain or chest discomfort. No palpitations. No pain. No other voiced complaints. He was transferred this morning from PCU to intensive care unit (ICU); and by request, placed on dobutamine 2.0 mg/kg per minute IV. PHYSICAL EXAMINATION: Most recent vital signs observed at the bedside showed arterial blood pressure by arterial line 125/63, noninvasive blood pressure cuff reading 90/61, heart rate 103 (sinus tachycardia), central venous pressure (CVP) 15. Respiratory rate 17. Oxygen saturation 98% on oxygen 2 liters by nasal canula. Right internal jugular vein venous catheter in situ. Arterial line in situ. The patient's hands and feet were cool to the touch. Jugular venous pulsations were at 12 cm. First heart sound reduced. Second heart sound normal. No S3 or S4 or murmurs appreciated. Respiratory expansion of chest was good. No crackles or wheezes. Abdomen was soft and nontender with normal bowel sounds. The patient is oriented to person, place and time. Mood and affect was normal. Abdomen was soft and nontender with normal bowel sounds. No hepatosplenomegaly or other organomegaly. No edema in the legs. No varicose veins. I have independently visualized the patient's portable supine chest film acquired 05/18/2018 at 10:47 a.m. The presence of interstitial and alveolar edema bilateral. Small right pleural effusion. Cardiomegaly despite the portable technique. Unable to assess pulmonary vascular distribution because this was a supine film. Laboratory work 05/18/2018 at 12:51 hours shows white blood count (WBC) 38.2, hemoglobin 13.6, hematocrit 42.6, platelets 331. Laboratory work 05/18/2018 shows sodium 131, potassium 5.5, chloride 100, CO2 14, anion gap 17, BUN 65, creatinine 3.01. Estimated glomerular filtration rate (GFR) 21.6, glucose 276, lactic acid 5.6, calcium 8.9, bilirubin is 0.5, AST elevated at 130, ALT elevated at 91, alkaline phosphatase elevated at 170, CPK 85, CK-MB 3.29%, troponin I is 0.55, total protein 7.9, albumin 3.2. ASSESSMENT AND PLAN: 1. Heart failure (acute on chronic, systolic and diastolic). The patient has a severe dilated cardiomyopathy with ejection fraction of 10% as discovered on the echocardiogram Doppler. At present, he has cardiogenic shock and seems to be improving with the addition of Dopamine. I will increase his IV dobutamine from 2 mg/kg per minute to 5 mg/kg per minute IV. For now, the plan will be work with dobutamine alone and furosemide will be placed on hold. The plan is to transfer him to [place] on Sunday to [facility] for diagnostic cardiac catheterization to see whether he has ischemic versus nonischemic dilated cardiomyopathy. His renal dysfunction is such that he will not tolerate an CHIKIS inhibitor or ARB at this time. 2. Dilated cardiomyopathy. As per heart failure category above. 3. Elevated troponin I. I suspect the elevated troponin I is most likely secondary to subendocardial myocardial ischemia due to high left ventricular diastolic filling pressures. He is scheduled to undergo cardiac catheterization on Sunday. 4. Abnormal electrocardiogram (ECG), stable.
[2018-05-18] MEDS: ATORVASTATIN 20 MG TAB PO SCH (20:39)
[2018-05-18] MEDS: LEVEMIR (INSULIN DETEMIR) 1 UNITS/0.01ML SC SCH (21:01)
[2018-05-19] VITALS (21 sets, daily range): BP systolic 87–135; BP diastolic 50–81
[2018-05-19] MEDS: cefTRIAXone SOD 1 GM in D5W MINI-BAG PLUS 50 ML IV SCH (05:40)
[2018-05-19] MEDS: SLF 3 ML SYR IV SCH ×3 (05:40→20:38)
[2018-05-19 06:03] LABS: HEMATOCRIT 37.8 % (42.0-52.0); HEMOGLOBIN 12.5 g/dl (13.5-17.5); MEAN CORPUSCULAR HEMOGLOBIN 27.2 pg (27.0-33.0); MEAN CORPUSCULAR HGB CONC 33.1 g/dl (32.0-36.5); MEAN CORPUSCULAR VOLUME 82.2 fl (80.0-96.0); PLATELET COUNT, AUTOMATED 262 10^3/uL (150-450); WHITE BLOOD COUNT 26.2 10^3/uL (4.0-10.0)
[2018-05-19 06:24] LABS: CALCIUM LEVEL 8.1 MG/DL (8.8-10.2); CREATININE FOR GFR 2.75 MG/DL (0.70-1.30); GLOMERULAR FILTRATION RATE 23.9 (>42); MAGNESIUM LEVEL 2.3 MG/DL (1.8-2.4); POTASSIUM SERUM 4.5 MEQ/L (3.5-5.1)
--- NOTE | 2018-05-19 07:21 | RO ---
DATE OF PROCEDURE: 05/18/2018 PREOPERATIVE DIAGNOSIS: Cardiogenic shock. POSTOPERATIVE DIAGNOSIS: Cardiogenic shock. PROCEDURE: Right internal jugular (IJ) triple lumen central line. SURGEON: Dr. Yareli Espana GLASS CUTTING MACHINE FEEDER: Dr. Becca Stewart ANESTHESIA: 1% local lidocaine. SEDATION: None. VENTILATION: 2 liters nasal cannula. ESTIMATED BLOOD LOSS: 10 mL. DESCRIPTION OF PROCEDURE: Requested by Dr. Becca Stewart to place a triple lumen central line on the patient for hypotension and likely cardiogenic shock. Consent was obtained. Risks and benefits have been explained to the patient. The patient was placed in the supine position. The right side of patient's neck was cleaned with ChloraPrep and the patient was covered in the usual manner. Ultrasound probe with sterile probe cover was used to locate the patient's right internal jugular. Subsequently 1% lidocaine was injected subcutaneously with ultrasound guidance. Subsequently introducer needle was inserted with ultrasound guidance. Blood return was obtained. Subsequently, wire was threaded through the introducer needle and the introducer needle was removed. The wire position was confirmed with ultrasound. Subsequently the site was dilated and triple lumen central line was inserted over the guidewire via Seldinger technique. The guidewire was removed. All three ports of the triple lumen central line were flushed and clamped. The triple lumen central line was secured with two stitches and dressing was placed. The patient tolerated the procedure with no complications. X-ray was ordered for confirmation.
--- NOTE | 2018-05-19 07:32 | RO ---
DATE OF PROCEDURE: 05/18/2018 PREOPERATIVE DIAGNOSIS: Cardiogenic shock. POSTOPERATIVE DIAGNOSIS: Cardiogenic shock. PROCEDURE: Left radial arterial line. SURGEON: Dr. Yareli Espana STUNT DOUBLE: Dr. Becca Stewart ANESTHESIA: 1% local lidocaine. SEDATION: None. VENTILATION: 2 liters nasal cannula. ESTIMATED BLOOD LOSS: 5 mL. DESCRIPTION OF PROCEDURE: Consent was obtained. The risks and benefits explained. A time out was done. The patient's left wrist was placed in extension position and secured with tape. The patient's wrist was cleaned with ChloraPrep and covered in the usual manner. The patient's radial artery was palpated. 20 gauge Arrow introducer was used. After multiple attempts, bright red blood return was obtained and a wire was threaded through and subsequently a catheter is advanced over the wire into the patient's radial artery. The wire subsequently was removed. Blood return was witnessed and subsequently the catheter was connected to the monitor and catheter good waveform was witnessed on the monitor. Subsequently the catheter was secured with two stitches and dressing was placed. The patient tolerated the procedure with no complication.
[2018-05-19] MEDS: AZITHROMYCIN 250 MG TAB PO SCH (08:01)
[2018-05-19] MEDS: ENOXAPARIN 30 MG/0.3 ML SYR (J1650) SC SCH (08:01)
[2018-05-19] MEDS: CLOPIDOGREL 75 MG TAB PO SCH (08:01)
[2018-05-19] MEDS: HumaLOG INSULIN (NovoLOG) PER UNIT SC SCH ×4 (08:02→20:37)
[2018-05-19] MEDS: DOBUTamine HCL 500,000 MCG in APPROPRIATE DILUENT 1 EA IV SCH (08:08)
[2018-05-19 08:32] LABS: ALBUMIN 2.9 GM/DL (3.2-5.2); BILIRUBIN,DIRECT 0.2 MG/DL (0.0-0.2); BILIRUBIN,TOTAL 0.3 MG/DL (0.2-1.0); TOTAL PROTEIN 6.2 GM/DL (6.4-8.2)
[2018-05-19] MEDS ORDERED: POLYVINYL ALCOHOL OPHTH SOLN 15 ML(LIQUITEARS) OU PRN (11:45)
--- NOTE | 2018-05-19 13:42 | IPN ---
DATE OF SERVICE: 05/18/2018 SUBJECTIVE: Patient was seen and examined at the bedside today morning in the intensive care unit (ICU). Overnight events were noted. The patient went into shock with hypotension. He is oliguric. He was transferred to the ICU. He got a central line placed. The patient is awake, but very lethargic at this point. He also got the arterial (A) line placed today. OBJECTIVE: VITAL SIGNS: Temperature is 97.3 degrees Fahrenheit. Blood pressure at this point on arterial line is 128/73. Pulse is 110. Respiratory rate of 24. Saturating 100% on nasal cannula at 2 liters. INTAKE AND OUTPUT: Urine output recorded since overnight is 210 mL. Weight on the bed scale is 80.3 kg. PHYSICAL EXAMINATION: GENERAL: Patient is awake, alert, oriented times three, laying in bed, weak and lethargic. HEAD AND NECK EXAM: Extraocular muscles intact. Pupils equally round and reactive to light. Mucous membranes are moist. Neck is supple. He has a right IJ triple lumen catheter. CARDIOVASCULAR: S1, S2, tachycardia. Mild elevation of jugular venous distention (JVD). No edema of the bilateral lower extremities. RESPIRATORY: Mildly decreased breath sounds at the bases. ABDOMEN: Soft, obese, positive bowel sounds, nontender. No organomegaly. MUSCULOSKELETAL: No clubbing or cyanosis. Pulses are 2+. CENTRAL NERVOUS SYSTEM (CAR PAINTER): No focal deficit. Power is 5/5 in all extremities. LINES: Patient has a left radial arterial line. LAB REVIEW: CBC showed a WBC of 46.6. Hemoglobin 15.3. Platelets are 413. Urinalysis showed it was cloudy, 1+ protein and 2+ blood. Mixed venous O2 sent from the arterial line showed oxygen saturation of 58.3%. BMP done today morning showed sodium 131, potassium 5.5, chloride 100, bicarbonate 14, BUN 65, creatinine 3.01, glucose 276, lactic acid 5.6, AST 130, ALT 91, alkaline phosphatase 170, albumin 3.2. IMAGING: A chest x-ray done today morning showed improving interstitial pulmonary edema and lessening of alveolar opacities. CURRENT INPATIENT MEDICATIONS: Patient's medications were all reviewed by me. He is currently on IV ceftriaxone. He has been started on dobutamine drip. His Entresto has been stopped. It was recently started in morning. He is on Lipitor 20 mg at bedtime. He is on Z-Sha. His carvedilol has been stopped. Lasix was started because of low blood pressures. Hydralazine is also on hold. Metoprolol which was started today morning has been stopped. Potassium has been stopped now. Spironolactone was also stopped today morning. No other change in the medications today as compared with yesterday. ASSESSMENT AND PLAN: 1. Shock, most likely cardiogenic shock. Patient does have leukocytosis, but he is also diagnosed with CLL during this hospitalization. He is already on IV ceftriaxone and azithromycin. I agree with dobutamine infusion. Mixed venous O2 shows improvement of the oxygen saturation and is more consistent with cardiogenic shock. His blood pressures are better now. CVP was checked and it was 16. I would slowly start to diurese the patient. Entresto, carvedilol and hydralazine has been stopped because of low blood pressure. 2. Acute renal failure superimposed on chronic kidney disease. It is most likely cardiorenal. The patient is oliguric at this point. I will try to give him a small dose of diuretic with improving blood pressure. 3. Hyperkalemia. It is secondary to renal failure and use of potassium when he was getting diuretics. Potassium level is improving with improvement in the perfusion and stopping the potassium tablets. 4. Hyponatremia. The patient has hypervolemic hyponatremia. Sodium with improvement in improvement in the renal function and cardiac output 5. Lactic acidosis. It is most likely secondary to decreased perfusion and cardiogenic shock. Lactic acid level is improving now. 6. Chronic lymphocytic leukemia. The patient is being seen by hematology now as well. White cell count bumped up in shock. Cultures have already been sent. The rest of the management is as per hematology/oncology recommendations. 7. New onset diabetes mellitus type 2. Continue insulin sliding scale and Levemir. Total critical care time spent in the management of this patient today morning in the ICU was 45 minutes.
--- NOTE | 2018-05-19 18:06 | IPNPDOC ---
Text Note Date of Service The patient was seen on 05/19/18. NOTE SUBJECTIVE: Patient is seen and examined in the room today. Patient states he is feeling better compared to yesterday. Denies recurrence of chest pain. He also feels his breathing is improving. OBJECTIVE: VITAL SIGNS: Listed below. GENERAL: No distress. Patient is alert and awake. Patient is oriented. HEENT: Normocephalic, atraumatic. Extraocular motor grossly intact. CARDIOVASCULAR: Tachycardic. Positive S1, S2. LUNGS: Decreased breath sounds. Crackles noted. ABDOMEN: Soft, nontender. EXTREMITIES: No edema. LABORATORY DATA: Listed below. ASSESSMENT AND PLAN: # Cardiogenic shock - PICC line and Arterial line placed. Monitored in ICU. On dobutamine drip. - Blood pressure remains soft. Entresto, carvedilol, hydralazine and diuretic are stopped. #. Systolic and diastolic congestive heart failure exacerbation. - Echocardiogram on 05/14/18. EF of 10%. Grade 2 diastolic dysfunction. Patient is on fluid restriction. - On dobutamine drip for cardiogenic shock. #. Elevated troponin. - Cardiology consulted. - Patient still could not make decision with regarding to coronary angiogram. Currently patient is on aspirin, coreg, Lipitor. Lovenox is adjusted from therapeutic dosage to prophylactic dosage per recommendation. #. CLL/SLL - No fever or chills. Blood culture remains negative. Urine culture is negative. - Flow cystometry of peripheral blood result demonstrates CLL/SLL. During acute events, there is acute elevated WBC. Discussed with on-call oncology. Acute elevated WBC would improve with improvement of acute event. Patient has no thrombocytopenia, no anemia and patient would benefit from outpatient hematology followup. # Leukocytosis - Initially CT of chest demonstrates the possible differential include pneumonia versus pulmonary hemorrhages, acute interstitial pneumonia, hypertensive pneumonitis. Sputum culture ordered but patient can not provide sample. S/P empirical antibiotics. - Patient is diagnosed with CLL/SLL. #. Acute renal failure. Renal ultrasound reviewed. - Patient is being treated for cardiogenic shock. [employer] consulted. Appreciate their assistance. #. New onset type 2 diabetes. - Insulin sliding scale. On consistent carbohydrate diet. #. DVT prophylaxis. Patient is on Lovenox. VS,Fishbone, I+O VS, Fishbone, I+O Laboratory Tests 05/19/18 05:41 Red Blood Count 4.60, Mean Corpuscular Volume 82.2, Mean Corpuscular Hemoglobin 27.2, Mean Corpuscular Hemoglobin Concent 33.1, Red Cell Distribution Width 14.5, Calcium Level 8.1 L Vital Signs Date Time Temp Pulse Resp B/P (MAP) Pulse Ox O2 Delivery O2 Flow Rate FiO2 05/19/18 17:00 109 21 91/68 (76) 99 Room Air 99/62 (74) 05/19/18 16:00 2.0 05/19/18 12:00 98.0 I&O- Last 24 Hours up to 6 AM 05/19/18 06:00 Intake Total 290 ml Output Total 680 ml Balance -390 ml CODI MURPHY DO May 19, 2018 18:06
[2018-05-19] MEDS: ATORVASTATIN 20 MG TAB PO SCH (20:37)
[2018-05-19] MEDS: LEVEMIR (INSULIN DETEMIR) 1 UNITS/0.01ML SC SCH (20:38)
[2018-05-20] VITALS (35 sets, daily range): BP systolic 86–126; BP diastolic 52–72
[2018-05-20] MEDS: DOBUTamine HCL 500,000 MCG in APPROPRIATE DILUENT 1 EA IV SCH (04:21)
[2018-05-20] MEDS: SLF 3 ML SYR IV SCH ×3 (05:29→21:03)
[2018-05-20] MEDS: cefTRIAXone SOD 1 GM in D5W MINI-BAG PLUS 50 ML IV SCH (05:29)
[2018-05-20 05:50] LABS: HEMATOCRIT 38.2 % (42.0-52.0); HEMOGLOBIN 12.3 g/dl (13.5-17.5); MEAN CORPUSCULAR HEMOGLOBIN 26.9 pg (27.0-33.0); MEAN CORPUSCULAR HGB CONC 32.2 g/dl (32.0-36.5); MEAN CORPUSCULAR VOLUME 83.4 fl (80.0-96.0); PLATELET COUNT, AUTOMATED 234 10^3/uL (150-450); RED BLOOD COUNT 4.58 10^6/uL (4.30-6.10); WHITE BLOOD COUNT 21.8 10^3/uL (4.0-10.0)
[2018-05-20 06:10] LABS: ALBUMIN 2.8 GM/DL (3.2-5.2); BILIRUBIN,DIRECT 0.2 MG/DL (0.0-0.2); BILIRUBIN,TOTAL 0.4 MG/DL (0.2-1.0); CALCIUM LEVEL 8.1 MG/DL (8.8-10.2); CREATININE FOR GFR 2.3 MG/DL (0.70-1.30); GLOMERULAR FILTRATION RATE 29.4 (>42); MAGNESIUM LEVEL 2.3 MG/DL (1.8-2.4); TOTAL PROTEIN 6.1 GM/DL (6.4-8.2)
[2018-05-20] MEDS ORDERED: FUROSEMIDE 100 MG/10 ML VIAL (J1940) IV ONE (09:00)
[2018-05-20] MEDS: ENOXAPARIN 30 MG/0.3 ML SYR (J1650) SC SCH (09:17)
[2018-05-20] MEDS: HumaLOG INSULIN (NovoLOG) PER UNIT SC SCH ×4 (09:19→20:52)
[2018-05-20] MEDS: CLOPIDOGREL 75 MG TAB PO SCH (09:20)
[2018-05-20] MEDS: AZITHROMYCIN 250 MG TAB PO SCH (09:20)
[2018-05-20] MEDS: DIGOXIN 0.25 MG TAB PO SCH ×3 (09:20→18:02)
--- NOTE | 2018-05-20 11:45 | IPN ---
DATE: 05/20/2018 Unfortunately, Mr. Giang's condition has deteriorated over the weekend. Apparently around unknown time on Sunday he started to be extremely hypotensive and more short of breath and then basically cardiogenic shock. He was transferred to intensive care unit (ICU). All his medications were discontinued. He was started on dobutamine/ Fortunately, it led to stabilization of his condition but he is on dobutamine since. He tells me that he had one or two more episodes of chest discomfort but they were both very short-lived and he feels that his condition has improved since Sunday but is still unable to do any activity as he gets extremely short of breath very quickly. He also feels tired and exhausted even though he did admit that he finally got some sleep. Vital signs: Blood pressure 106/58, heart rate is in 100-100 and teens in sinus rhythm. Surprisingly, has not had any ventricular ectopy. He is afebrile. Saturation 98% on room air. His fluid balance yesterday was approximately equal, but there was only about 800 both input and output. Weight is documented 80.1 kg today which is unchanged since admission. He is alert and oriented appropriate. His jugular venous pulse (JVP) is elevated. Lungs are reasonably clear. I do not appreciate wheezing, crackles. There are some diminished breath sounds over bases. Heart: Exam reveals very muffled heart sounds. I do not appreciate any gallop, rub or murmur but that the heart sounds are barely audible. Abdomen is soft, nontender. Extremities are free of edema. Neurologic: He seems intact. LABORATORY: CBC: WBC count 21.8, hemoglobin 12.3, hematocrit 38, platelet count 134,000. Basic metabolic panel: Sodium 134, potassium 4.0, BUN 65, creatinine 2.3 and glucose 178, albumin is 2.8 ASSESSMENT/PLAN: Mr. Giang is a 77-year-old man who came in with acute systolic congestive heart failure. I suspect there is underlying cardiomyopathy, but it is not totally certain. He did have troponin elevation. He initially refused to be transferred to [place] so we managed him locally but then he changed his mind. At this point, he is still in the state of cardiogenic shock and consequently I think it is not stable for transfer especially because the angiogram would almost certainly through him in acute renal failure which would negate any gains that were gained from dobutamine. I will try to titrate the dobutamine off today. I am going to give him a single dose of furosemide IV and I am going to give him just 0.75 mg of by mouth digoxin for the course of the day. Hopefully, we will be able to wean him off dobutamine and then start very, very slowly introducing some vasodilators. Unfortunately, this represents significant setback and unless he has underlying coronary artery disease where interventions can bring him some improvement, his prognosis is very poor.
[2018-05-20] MEDS ORDERED: SODIUM CHLORIDE 0.9% INJ 10 ML SYR IV PRN (15:30)
--- NOTE | 2018-05-20 19:34 | IPN ---
DATE: 05/20/2018 SUBJECTIVE: Patient was seen and examined this morning at the bedside. His CVP yesterday was 13, CVP this morning is 11. Cardiology is weaning his dobutamine infusion and have also given him a dose of Lasix 80 mg IV times one. He has not gotten out of bed and when the nurse slides him flat to check CVP, he reports shortness of breath. He denies chest pain. He complains of watery diarrhea and eight bowel movements are recorded today. VITAL SIGNS: Temperature 97.5, pulse 109, respiratory rate 20, blood pressure 90/62, saturation 97% on room air. Intake yesterday was 810, urine output yesterday was 800, equivalent fluid balance. Weight on the bed scale today is 80.1 kg, which is unchanged from prior. General: The patient is seen sitting in bed, head of the bed elevated. Extraocular muscles are intact. Tongue is moist. He is on room air. There is central lines present in the jugular veins. CVP is 11. Lungs are clear with symmetric air entry. No crackles or rales. Cardiac: Tachycardic, S1, S2. Abdomen: Soft and nontender. There are bowel sounds. The extremities are negative for edema in the peripheries and in the dependent area. Genitourinary: Shows Christine catheter with urine. Neurologic: He is oriented with no focal deficits. LABORATORY: Sodium 134, potassium 4.0, bicarbonate 20, BUN 65, creatinine 2.3, glucose 178, hemoglobin 12.3. INPATIENT MEDICATIONS: Cardiology is weaning the dobutamine infusion and gave him Lasix 80 mg IV times one. The remainder of medications are unchanged from prior. PROBLEMS: 1. Nonoliguric renal failure with possible chronic kidney disease stage III underlying. Patient did not see a physician for more than 20 years; hence his baseline creatinine is not known. His admission creatinine was 2.0. Peak creatinine was 3.1, which has now been improving. There is cardiorenal syndrome at play, and he may have diabetic nephropathy underlying, though he will need further workup for the same. At present, cardiology is weaning his inotrope, and I suspect he will have some decrease in renal perfusion. I would not recommend excessive use of diuretic given that (1) his inotrope is being weaned, (2) he is for imminent contrast administration, and (3) he is having complaint of watery diarrhea and not a whole lot of intake to begin with, and (4) his CVP is already acceptable at 11, and the patient is nonoliguric.5) He is saturating well on room air. 2. Systolic congestive heart failure. Possible ischemic cardiomyopathy underlying. Patient is pending transfer to [place] for left heart catheterization. He is at risk for contrast-induced nephropathy. I would hold off on excessive diuretic use. He is not requiring any supplemental oxygen. His CVP is 11, and he is having diarrhea. Cardiology is weaning his dobutamine infusion. 3. Diarrhea. Eight bowel movements recorded today. Suggest GI PCR. MTDD
[2018-05-20] MEDS: ATORVASTATIN 20 MG TAB PO SCH (20:40)
[2018-05-20] MEDS: SODIUM CHLORIDE 0.9% INJ 10 ML SYR IV SCH (20:42)
[2018-05-20] MEDS: LEVEMIR (INSULIN DETEMIR) 1 UNITS/0.01ML SC SCH (20:55)
--- NOTE | 2018-05-20 21:32 | IPN ---
DATE: 05/19/2018 SUBJECTIVE: Patient is seen and examined this morning at the bedside in the intensive care unit. He denies any acute overnight events. Central venous pressure (CVP) this morning was 13, and he reported shortness of breath when the nurse decreased the head of the bed to flat in order to check his CVP. He continues on dobutamine infusion. VITAL SIGNS: Temperature 98, pulse 112, respiratory rate 18, blood pressure 109/76, saturating 99% on one liter nasal cannula. Intake yesterday was 760, urine output yesterday was 430. Urine output thus far today is 615. Weight on the bed scale today is not recorded. General: The patient is seen lying in bed, awake, alert, oriented, in no acute distress. Head of the bed is elevated. Extraocular muscles are intact. Tongue is moist. He is on nasal cannula. CVP is 13. There is a right internal jugular (IJ) central line in place. Regular heart sounds, S1, S2. Bilateral air entry without wheeze or crackle. Abdomen is soft and nontender. There is a Christine catheter in place with urine. The extremities were negative for edema. His hands and feet were cool to touch. LABORATORY: White count 26, hemoglobin 12.5, platelets 262. Sodium 134, potassium 4.5, bicarbonate 19, BUN 74, creatinine 2.7. INPATIENT MEDICATIONS: He continues on dobutamine infusion Remainder of medications are unchanged from prior. PROBLEMS: 1. Systolic and diastolic congestive heart failure with exacerbation and cardiogenic shock. Patient continues on dobutamine infusion. His mean arterial pressure (MAP) is averaging 70. He remains off of antihypertensives. CVP this morning was 13. Ejection fraction of 10% with grade 2 diastolic dysfunction. His oral intake has been fairly minimal the past couple of days. Diuretic is presently held. He is pending transfer to [facility] on Sunday for left heart catheterization. 2. Acute on chronic renal failure. Patient did not see a physician for more than two decades; hence, his baseline creatinine is an unknown. His admission creatinine was around 2, peak creatinine 3.1, now with improvement down to 2.7. He is nonoliguric. Given that his CVP is 13 and that he is for probable left heart catheterization tomorrow with contrast, I am holding diuretic. He is saturating well on one liter nasal cannula, and this can probably be weaned off. We will keep a close eye on his volume and respiratory status. 3. Hyponatremia. It is secondary to severe congestive heart failure and acute on chronic renal failure and it is mild. He is already fluid restricting.
--- NOTE | 2018-05-20 21:54 | IPN ---
DATE: 05/18/2018 SUBJECTIVE: The patient is seen and examined multiple times in the room today. 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 The patient became hemodynamically unstable. The patient started to have mental status changes and the patient was determined to have cardiogenic shock and the patient was upgraded to the intensive care unit (ICU) and cardiology notified with acute changes and the patient started on the dobutamine drip. Percutaneous indwelling central catheter (PICC) and arterial line were placed for close patient monitoring and treatments. Later, the patient's blood pressure stabilized and the patient's mental status improved. The patient's was contacted and serious events are discussed. OBJECTIVE: VITAL SIGNS: In the morning, temperature 96.7, pulse is 100, respirations 20, blood pressure is 80/60, pulse oximetry 96% with 2 liters nasal canula. GENERAL: In the morning, the patient was lethargic, able to answer questions, but the patient demonstrated slow response. Later after stabilization, the patient is more alert and awake and oriented. HEENT: Normocephalic, atraumatic. CARDIOVASCULAR: Tachycardiac. Positive S1, S2. LUNGS: Positive lung crackles bilaterally. No significant wheezes. ABDOMEN: Soft, nontender, nondistended. EXTREMITIES: Very weak peripheral pulse. LABORATORY DATA: White blood count (WBC) 46.6, hemoglobin 15.3, hematocrit 48, 2, platelet count is 413. Sodium is 131, potassium 5.5, chloride 100, CO2 14, BUN is 65, creatinine is 3.01, glomerular filtration rate (GFR) is 21.6, fasting glucose is 276. Calcium is 8.9. ASSESSMENT AND PLAN: 1. Cardiogenic shock. The patient is transferred to the intensive care unit (ICU). The patient is currently on the dobutamine drip. Will be cautions regarding to fluid usage. Cardiology consult. 2. Acute on chronic systolic and diastolic congestive heart failure. Ejection fraction of 10%. Grade 2 diastolic dysfunction. Currently, the patient is on dobutamine drip for cardiogenic shock. Diuretic is on hold per recommendation. 3. Elevated troponins. Suspect myocardial infarction ([place]). Once the patient is more stable, attempted plan to transfer the patient to [facility] on Sunday for cardioangiogram. The patient is currently on Plavix, Lipitor. 4. 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 Flow cytometry of peripheral smear performed CLL. Since the patient's white blood count (WBC) is being around 23 to 27. Today, the patient had cardiogenic shock, white count is increased from 40 to 46. The case was discussed with on-call oncologist. During the significant physical threat, CLL, the patient tend to have rapid dramatic increase of the white count and usual white will improve once insult starts to improve. 5. Acute renal failure. Nephrology consulted. Currently, due to cardiogenic shock, the patient's multiple medications are being on hold. 6. New onset of diabetes. Continue sliding scale. Continue consistent carbohydrate diet. 7. Deep vein thrombosis (DVT) prophylaxis on Lovenox.
[2018-05-20] MEDS ORDERED: NITROGLYCERIN 0.4 MG SUBL TABLET SL STA (22:56)
[2018-05-20] MEDS ORDERED: NITROGLYCERIN 0.4 MG SUBL TABLET As Ordered ONE (23:15)
[2018-05-20] MEDS: NITROGLYCERIN 0.4 MG SUBL TABLET SL PRN ×2 (23:27→23:35)
[2018-05-21] VITALS (10 sets, daily range): BP systolic 95–108; BP diastolic 56–72
[2018-05-21] MEDS ORDERED: ASPIRIN 325 MG TAB PO ONE (00:15)
[2018-05-21 00:32] LABS: CALCIUM LEVEL 8.2 MG/DL (8.8-10.2); CREATININE FOR GFR 2.08 MG/DL (0.70-1.30); MB/CK RELATIVE INDEX 1.44 (< OR =4); POTASSIUM SERUM 3.9 MEQ/L (3.5-5.1); TROPONIN I 0.69 NG/ML (< 0.10)
[2018-05-21] MEDS: SLF 3 ML SYR IV SCH (05:29)
[2018-05-21] MEDS: SODIUM CHLORIDE 0.9% INJ 10 ML SYR IV SCH (05:29)
[2018-05-21 05:56] LABS: HEMATOCRIT 39.4 % (42.0-52.0); HEMOGLOBIN 12.6 g/dl (13.5-17.5); MEAN CORPUSCULAR HEMOGLOBIN 26.5 pg (27.0-33.0); MEAN CORPUSCULAR VOLUME 82.9 fl (80.0-96.0); PLATELET COUNT, AUTOMATED 284 10^3/uL (150-450); RED BLOOD COUNT 4.75 10^6/uL (4.30-6.10)
[2018-05-21 06:24] LABS: ALBUMIN 2.8 GM/DL (3.2-5.2); BILIRUBIN,DIRECT 0.3 MG/DL (0.0-0.2); BILIRUBIN,TOTAL 0.7 MG/DL (0.2-1.0); CALCIUM LEVEL 8.1 MG/DL (8.8-10.2); CREATININE FOR GFR 2.03 MG/DL (0.70-1.30); MAGNESIUM LEVEL 2.3 MG/DL (1.8-2.4); MB/CK RELATIVE INDEX 1.11 (< OR =4); POTASSIUM SERUM 4.2 MEQ/L (3.5-5.1); TOTAL PROTEIN 6.1 GM/DL (6.4-8.2); TROPONIN I 0.6 NG/ML (< 0.10)
[2018-05-21 06:58] LABS: WHITE BLOOD COUNT 37.1 10^3/uL (4.0-10.0)
[2018-05-21] MEDS: ENOXAPARIN 30 MG/0.3 ML SYR (J1650) SC SCH (08:02)
[2018-05-21] MEDS: HumaLOG INSULIN (NovoLOG) PER UNIT SC SCH (08:03)
[2018-05-21] MEDS: CLOPIDOGREL 75 MG TAB PO SCH (08:03)
[2018-05-21] MEDS: AZITHROMYCIN 250 MG TAB PO SCH (08:03)
--- NOTE | 2018-05-21 08:34 | IPN ---
DATE: 05/21/2018 Mr. Giang did relatively well during the day yesterday. He had a successful diuresis. He was able to be weaned off pressors and maintains his blood pressure, but unfortunately last night had an episode of fairly severe chest discomfort that was retrosternal, describes as pressure or heaviness, but eventually was relieved by three sublingual nitroglycerin. His ECG reveals precordial T-wave inversions. They are more pronounced compared to his old ECGs. His troponin also came up a little bit. It was 0.55 on 05/18/2018, trending down, but then last night it went to 0.6 now, so there was a slight elevation. This morning he feels better, basically close back to his baseline. Vital signs: Blood pressure 105/72, heart rate approximately 100 beats per minute. Afebrile. Saturation 98% on room air. Fluid balance yesterday was documented only slightly negative about 40 mL, made about 1500 mL of urine and his weight is 80.6 kg today. His JVP is 11. Lungs are reasonably clear in upper two-thirds, diminished over both bases. I do not appreciate any crackles or wheezing. Heart exam reveals very muffled heart sounds. I do not appreciate any gallop, rub or murmur but I can barely hear the heart. Abdomen is soft, nontender. No obvious organomegaly. No peripheral edema. Peripheral pulses are present. Laboratory odonnell: CBC revealed WBC count 37,000, hemoglobin 12.6, hematocrit 29, and platelet count 284. Basic metabolic panel: Sodium 134, potassium 4.2, BUN 53, creatinine 2.0 for GFR 34 and glucose 124, troponin 0.60 and albumin 2.8. ASSESSMENT AND PLAN: Mr. Giang is a 77-year-old man, who came after decades of not receiving any medical care with pulmonary edema. He was found to have severe left ventricular systolic dysfunction with ejection fraction about 10%. Simultaneously, he has renal insufficiency and very elevated white blood cell (WBC) count. I suspect most likely representing chronic lymphocytic leukemia (CLL). Initially, I was able to introduce low-dose beta-blockers and some vasodilators, but unfortunately his condition deteriorated over the weekend and all the blood pressure reducing medication had to be discontinued. He was on dobutamine. Yesterday, we were able to wean of dobutamine and diurese a little and he looks a little bit better today, but the fact that he developed chest discomfort last night is worrisome. I do worry that there is a component of ischemic heart disease and I think that this point, even though he is still not hemodynamically well-compensated, it would be best to transfer him for an angiogram because of potentially revascularization can improve his chances of recovery of LV systolic function. I spoke about this with the patient and also with Dr. Gross will try to arrange for a transfer today. In the interim, he will be continued on aspirin, Plavix, and statin. I will give him also a dose of diuretics this morning. Because his blood pressure is very soft, I am not going to introduce any vasodilators because I do not want him to destabilize during the transfer.
[2018-05-21] MEDS ORDERED: FUROSEMIDE 100 MG/10 ML VIAL (J1940) IV ONE (09:00)
--- NOTE | 2018-05-21 17:04 | DS.PDOC ---
Discharge Summary General Date of Admission May 14, 2018 at 01:36 Date of Discharge 05/21/18 Specialist/Consultants Involve Dr. Webb and Dr. Nicolas of Nephrology, Dr. Boston and Dr. Laureano of Cardiology Discharge Summary PROCEDURES PERFORMED DURING STAY: None. ADMITTING/DISCHARGE DIAGNOSES: Cardiogenic shock Acute on chronic systolic and diastolic congestive heart failure Elevated troponin levels CLL/SLL Acute renal failure New onset diabetes COMPLICATIONS/CHIEF COMPLAINT: Chf (Congestive Heart Failure), Ckd. HISTORY OF PRESENT ILLNESS: . 77-year-old male with no known medical history as he did not seek any medical care in over 20 years presented to the ER with a chief complaint of worsening shortness of breath and chest pressure over 2 weeks. The patient states that his dyspnea gradually progressed to the point of orthopnea and paroxysmal nocturnal dyspnea. He presented to the ER for further evaluation and management. In the ER, the patient was noted to be in decompensated congestive heart failure. Imaging revealed cardiomegaly, and bilateral pleural effusions. Additionally, the patient was also noted to have a significantly elevated white blood cell count. An EKG revealed sinus rhythm with low voltage in extremity leads but not in precordial leads, with poor R-wave progression and ST segment depressions in leads V4 and V5. His serum troponin levels were also noted to peak at 4.78. The patient refused transfer to [place] for cardiac catheterization at the time of admission. The patient was admitted to the hospitalist service and a consult was placed to cardiology for further evaluation and management. During hospitalization, the patient was found to have an ejection fraction of 10% and grade 2 diastolic dysfunction. Cardiology was consulted and the patient was started on diuretic therapy initially, and then subsequently had to be transitioned to a dobutamine drip for cardiogenic shock. Nephrology was also consulted for renal insufficiency. The patient continued to have chest pain, and his troponin markers started to trend upward again overnight. At this time, the patient is more amenable to interventional cardiac services, and a transfer has been arranged by our cardiology team. The patient will be transferred to for further workup. Of note, the patient was noted to have a significantly elevated white blood cell count here during hospitalization. 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 The case was discussed with the on-call oncologist by my colleague, and the patient has been advised to follow-up as an outpatient. At this time, the patient will be transferred to [facility] for the more acute issue at hand which is his heart failure. I've advised the patient to follow-up with the physicians there. DISCHARGE MEDICATIONS: Please see below. ALLERGIES: Please see below. PHYSICAL EXAMINATION ON DISCHARGE: VITAL SIGNS: Please see below. GENERAL: Awake, alert, oriented, in no acute distress HEENT: Normocephalic, atraumatic. CARDIOVASCULAR: Normal rate, normal rhythm, Positive S1, S2. LUNGS: Bibasilar crackles noted on auscultation. ABDOMEN: Soft, nontender, nondistended. EXTREMITIES: No erythema or tenderness of the lower extremities LABORATORY DATA: Please see below. IMAGING: Chest one-view HISTORY: Cough Comparison: None Parenchymal densities are present in the lungs consistent with bilateral infiltrates or edema. Small bilateral pleural effusions are present. The heart is normal in size. The pulmonary vasculature is a prominent. Impression: 1. Bilateral infiltrates or edema. 2. Small bilateral pleural effusions. EXAM: CT Chest Without Contrast EXAM DATE/TIME: 05/13/2018 10:54 PM CLINICAL HISTORY: 77 years old, male; Signs and symptoms; Shortness of breath TECHNIQUE: Axial computed tomography images of the chest without intravenous contrast. All CT scans at this facility use at least one of these dose optimization techniques: automated exposure control; mA and/or kV adjustment per patient size (includes targeted exams where dose is matched to clinical indication); or iterative reconstruction. Coronal and sagittal reformatted images were created and reviewed. MIP reconstructed images were created and reviewed. COMPARISON: CR PORTABLE CHEST X-RAY 05/13/2018 9:11 PM FINDINGS: Lungs: Abnormal bronchocentric perihilar groundglass opacities noted bilaterally. There are fibrotic changes noted in the right middle lobe and the lingula. There is diffuse bronchial wall thickening. Paraseptal type emphysema at the right lung apex. Scattered centrilobular nodules noted in the right middle lobe. Pleural space: There are moderate sized bilateral pleural effusions. Heart: Normal. No cardiomegaly. No pericardial effusion. Mediastinum: There is a small sliding hiatal hernia. Aorta: Normal. No aortic aneurysm. Lymph nodes: Unremarkable. No enlarged lymph nodes. Bones/joints: Diffuse idiopathic skeletal hyperostosis in the dorsal spine. Mild biconcave deformity of T11 and T12. Soft tissues: Unremarkable. Kidneys and ureters: There are 2 exophytic low density lesion arising from the midportion the left kidney measuring 1.0 and 1.9 cm respectively in maximum diameter. There is a 1.8 cm low-density lesion in the midportion of the right kidney. IMPRESSION: 1. Bilateral bronchocentric perihilar groundglass pneumonitis. Differential diagnostic considerations include infectious pneumonia, pulmonary hemorrhage, acute interstitial pneumonia, hypersensitivity pneumonitis, noncardiogenic pulmonary edema among others 2. Moderate-sized bilateral pleural effusions. 3. Small sliding hilum hernia. 4. Bilateral low-density renal lesions not characterized fully on this noncontrast examination. Urinary tract sonography: History: Suspicious renal lesion on CT abdomen. Comparison is made with images from CT study of the chest May 13, 2018. Sonographic findings: Filled views of the bladder demonstrate a trabecular bladder bonilla and somewhat thickened bladder bonilla. The bladder is incompletely filled. No bladder mass lesion is seen. Renal cortical echogenicity pattern is increased bilaterally consistent with chronic medical renal disease. There is no evidence of hydronephrosis. No renal mass is seen on either side. The left kidney measures 10.0 x 4.5 x 4.8 cm. Right renal dimensions are 9.9 x 5.8 x 4.7 cm. The right kidney demonstrates a 2.2 x 2.0 x 1.4 cm cyst at the lower pole. There are two cysts visible laterally at mid pole on the left measuring 2.2 x 2.2 x 1.0 and 1.1 x 2.0 x 1.2 cm respectively. Impression: Bilateral renal cysts. No hydronephrosis. Increased renal cortical echogenicity consistent with chronic medical renal disease. Trabeculated bladder bonilla. AP PORTABLE CHEST: 05/18/2018. Comparison: CT and AP portable chest 05/13/2018. Clinical history: Respiratory distress. Findings: The a density of bilateral airspace opacities in the lower lung zones has improved. There are bilateral effusions still present and there is lesser interstitial edema compared to the prior. Heart and mediastinal contours unchanged with some left ventricular configuration. The aorta and airway intact. Bones with degenerative changes spine and shoulders. Impression: 1. Improving interstitial pulmonary edema and lessening of the alveolar opacities in both lower lung zones. Pleural effusions persist. Heart size enlarged as before. AP PORTABLE CHEST: 05/18/2018 at 10:47 AM. Comparison: Portable chest at 08:00 AM this date and 05/13/2018. Clinical history: Central line placement. Findings: This supine examination shows a new right jugular central catheter with tip in the SVC. There is no evidence for gross pneumothorax. A small effusion is seen with blunting of the CP angles. There is more dense air space opacity in the perihilar and infrahilar lower lung zones then and previously. Cardiomegaly with left ventricular and atrial enlargement noted. Impression: 1. New indwelling right jugular central catheter with tip in SVC. No widening of the mediastinum but increase in air space opacities in the mid and lower lung zones and bilateral effusions noted. This may reflect some interval increase in pulmonary edema. No gross evidence for pneumothorax. DATE OF PROCEDURE: 05/14/2018 REFERRING PHYSICIAN: Dr. Davila. INDICATION: Congestive heart failure. Height: 178 cm Weight: 81 kg DIMENSIONS: IVS: 1.0 LV: 5.3 LVPW: 0.9 LA: 3.9 Aorta: 3.2 IVC: 1.9 Mitral E wave velocity: 43 E prime septal: 3.3 E prime lateral: 8.9 Left atrial volume index: 9 mL/m2 FINDINGS: The study is of good technical quality. The patient is in sinus tachycardia with ventricular rate approximately 120-125 bpm. Left ventricle is normal size. There is severe global hypokinesis. I estimate overall ejection fraction approximately 10%. Right ventricle does not appear grossly dilated but is also hypokinetic. Left atrium is mildly enlarged. Right atrium was poorly seen but grossly appears normal. Aortic, mitral, tricuspid and pulmonic valves all appear normal for patient's age. There are minimal sclerotic abnormalities of aortic and mitral valves but mobility of leaflets is preserved. No pericardial effusion is noted. Inferior vena cava is in upper limits of normal values but does not collapse with respiration indicative of high central venous pressure. Aortic root is normal. Aortic arch and abdominal aorta were not seen. Left pleural effusion was seen. Doppler interrogation reveals no aortic stenosis or insufficiency. There is mild mitral and mild tricuspid insufficiency. Calculated pulmonary artery pressure is in 40s corresponding to moderate pulmonary hypertension. Mild pulmonic insufficiency seen. Evaluation of diastolic function is inconclusive due to fusion of mitral E and A-waves but considering very low tissue Doppler velocities of mitral annulus, itis likely that the patient has advanced diastolic dysfunction. CONCLUSION: 1. Study is of good technical quality. 2. Normal LV size but severe global hypokinesis with estimated LVEF approximately 10%, at least grade 2 diastolic dysfunction. 3. No hemodynamically significant valvular disease. 4. Elevated central venous pressure and likely moderate pulmonary hypertension. PROGNOSIS: Poor long-term prognosis ACTIVITY: As tolerated. DIET: 2 g low sodium, carb consistent diet, 1500 mL fluid restrict diet DISCHARGE PLAN: DISPOSITION: To Acute Hosp. DISCHARGE INSTRUCTIONS: At this time, the patient will be transferred to for the more acute issue at hand which is his heart failure. I've advised the patient to follow-up with the physicians there. DISCHARGE CONDITION: Stable. TIME SPENT ON DISCHARGE: Greater than 30 minutes. Vital Signs/I&Os Vital Signs Date Time Temp Pulse Resp B/P (MAP) Pulse Ox O2 Delivery O2 Flow Rate FiO2 05/21/18 10:08 98.5 109 20 108/62 (77) 98 05/21/18 07:30 Room Air 05/21/18 03:00 2.0 I&O- Last 24 Hours up to 6 AM 05/21/18 06:00 Intake Total 1456 ml Output Total 1555 ml Balance -99 ml Laboratory Data Labs 24H Laboratory Tests 2 05/20/18 17:21: Bedside Glucose (Misc Panel) 151H 05/20/18 20:39: Bedside Glucose (Misc Panel) 135H 05/20/18 23:15: Anion Gap 12, Glomerular Filtration Rate 33.0L, Blood Urea Nitrogen 58H, Creatinine 2.08H, Sodium Level 134L, Potassium Level 3.9, Chloride Level 100, Carbon Dioxide Level 22, Calcium Level 8.2L, Total Creatine Kinase 90, Creatine Kinase MB 1.0, Creatine Kinase MB Relative Index 1.44, Troponin I 0.69H 05/21/18 05:30: Nucleated Red Blood Cells % (auto) 0.0 05/21/18 06:00: Anion Gap 13, Glomerular Filtration Rate 34.0L, Calcium Level 8.1L, Magnesium Level 2.3, Aspartate Amino Transf (AST/SGOT) 39H, Alanine Aminotransferase (ALT/SGPT) 64, Alkaline Phosphatase 127H, Total Bilirubin 0.7#, Direct Bilirubin 0.3H, Total Creatine Kinase 90, Creatine Kinase MB 1.0, Creatine Kinase MB Relative Index 1.11, Troponin I 0.60H, Total Protein 6.1L, Albumin 2.8L, Albumin/Globulin Ratio 0.85L CBC/BMP Laboratory Tests 05/20/18 23:15 Calcium Level 8.2 L, Total Creatine Kinase 90 05/21/18 05:30 Red Blood Count 4.75, Mean Corpuscular Volume 82.9, Mean Corpuscular Hemoglobin 26.5 L, Mean Corpuscular Hemoglobin Concent 32.0, Red Cell Distribution Width 14.5 05/21/18 06:00 FSBS Laboratory Tests Test 05/20/18 17:21 05/20/18 20:39 Range/Units Bedside Glucose (Misc Panel) 151 135 83-110 MG/DL Microbiology Microbiology 05/18/18 Blood Culture - Preliminary, Resulted No Growth after 72 hours. All specime... 05/18/18 Blood Culture - Preliminary, Resulted No Growth after 72 hours. All specime... 05/14/18 Blood Culture - Final, Complete NO GROWTH AFTER 5 DAYS 05/18/18 Urine Culture - Final, Complete Discharge Medications Scheduled Aspirin (Aspirin) 325 Mg Tab, 325 MG PO DAILY, (Reported) Calcium Carbonate (Tums E-X 750) 750 Mg Chw, 750 MG PO BID, (Reported) Scheduled PRN (Theraflu Expressmax 12.5-5-325 mg/15Ml) 1 Liq Liq, 1 LIQ PO Q4H PRN for FLU SYMPTOMS, (Reported) Pseudoephedrine Hcl (Sudafed Congestion) 30 Mg Tab, 30 MG PO Q4H PRN for CONGESTION, (Reported) Sodium Chloride ([place] Nasal Cascade) 0.65 % Spr, 2 SPRAY NA QID PRN for NASAL CONGESTION, (Reported) EACH NOSTRIL Tetrahydrozoline Hcl (Visine) 0.05 % Cony, 1 DROP OU QID PRN for REDNESS/IRRITATION, (Reported) Allergies Coded Allergies: [place] (Verified Allergy, Unknown, 05/13/18) LENI MOORE MD May 21, 2018 17:04
--- NOTE | 2018-05-21 19:23 | ECGEPIP ---
Stationary ECG Study [facility] Test Date: 2018-05-20 Pat Name: RACHEL BETANCOURT Department: Room: [place] [address] Gender: M [employer]: Ned : 1940 Requested By: RONNIE SUNDAY Order Number: [id number] Reading MD: Ady Tobar Measurements Intervals [place] Rate: 109 P: 26 SD: 145 QRS: 65 QRSD: 100 T: 220 QT: 337 QTc: 454 Interpretive Statements Sinus tachycardia Low QRS complex voltage in the limb leads Delayed anterior R wave progression Nonspecific ST-T wave abnormalities No significant change when compared to prior tracing of 05/17/2018 Electronically Signed On 05-21-2018 19:22:57 EST by Ady Tobar
== END 2018-05-21 11:20 | disposition short-term general hospital (02) | DRG 280 ==
LOC: M ED 20:28 → M ED INP 05-14 01:36 → M PCU 05-14 03:04 → M ICU 05-18 09:37
PROVIDERS: ADMIT Hospitalist; ATTEND Internal Medicine
PROC: 02HV33Z Insertion of Infusion Device into Superior Vena Cava, Percutaneous Approach (ICD-10-PCS; principal; 2018-05-18)
PROC: 03HY32Z Insertion of Monitoring Device into Upper Artery, Percutaneous Approach (ICD-10-PCS; 2018-05-18)
DX: I13.0 Hypertensive heart and chronic kidney disease with heart failure and stage 1 through stage 4 chronic kidney disease, or unspecified chronic kidney disease (principal); I21.9 Acute myocardial infarction, unspecified; J18.9 Pneumonia, unspecified organism; I50.41 Acute combined systolic (congestive) and diastolic (congestive) heart failure; R57.0 Cardiogenic shock; N17.9 Acute kidney failure, unspecified; J90 Pleural effusion, not elsewhere classified; E87.1 Hypo-osmolality and hyponatremia; E87.2 Acidosis; C91.10 Chronic lymphocytic leukemia of B-cell type not having achieved remission; I42.0 Dilated cardiomyopathy; E11.22 Type 2 diabetes mellitus with diabetic chronic kidney disease; N28.1 Cyst of kidney, acquired; N18.3 Chronic kidney disease, stage 3 (moderate); Z66 Do not resuscitate; E87.6 Hypokalemia; E11.21 Type 2 diabetes mellitus with diabetic nephropathy; Z79.82 Long term (current) use of aspirin; Z79.899 Other long term (current) drug therapy; Z91.018 Allergy to other foods; R19.7 Diarrhea, unspecified